=== PATIENT | male | born 1960 | race Caucasian/White ===

== ENCOUNTER 2017-11-24 14:49 | Inpatient (IN) ==
[2017-11-24] MEDS ORDERED: *HR* Heparin 5,000 UNIT/ML VIAL IVP PRN (16:06)
[2017-11-24] MEDS ORDERED: *HR* Heparin 5,000 UNIT/ML VIAL IVP ONE (16:06)
[2017-11-24] MEDS ORDERED: Naloxone 0.4 MG/ML INJ IVP PRN (16:07)
[2017-11-24] MEDS ORDERED: OXYCODONE Oral CONC 10 MG/0.5 ML ORAL.SYG SL PRN (16:07)
[2017-11-24] MEDS ORDERED: Acetaminophen 325 MG TABLET PO PRN (16:07)
[2017-11-24] MEDS ORDERED: *HR* OxyCODONE Immed Rel 5 MG TABLET PO PRN ×2 (16:07→16:48)
[2017-11-24] MEDS ORDERED: *HR* HYDROcodone/Acet 5/325 mg TABLET PO PRN (16:07)
[2017-11-24] MEDS ORDERED: *HR* FentaNYL PATCH 25 MCG PATCH TD SCH (16:15)
[2017-11-24] MEDS ORDERED: *HR* OxyCODONE Immed Rel 15 MG TABLET PO PRN (16:46)
--- NOTE | 2017-11-24 16:53 | Vascular/Endovascular H&P ---
Date of Encounter: 11/24/17 Time of Encounter: 15:00 Assessment and Plan (1) Atherosclerosis of left lower extremity with rest pain Current Visit: Yes Status: Acute The patient has acute on chronic left lower extremity ischemia. He has no signs of immediate limb threatening ischemia. He has an occluded FEM-FEM and Left Femoral to Popliteal Bypass. He will be admitted and started on intravenous anticoagulation. He will be given adequate pain control. His labs will be checked. He may require reverasal of his anticoagulation. He will be scheduled for revascularization. Qualifiers: Peripheral atherosclerosis artery type: bypass graft, nonbiological Qualified Code(s): I70.622 - Atherosclerosis of nonbiological bypass graft(s) of the extremities with rest pain, left leg (2) Essential hypertension Current Visit: Yes Status: Acute (3) COPD (chronic obstructive pulmonary disease) Current Visit: Yes Status: Acute Qualifiers: COPD type: emphysema Emphysema type: panlobular Qualified Code(s): J43.1 - Panlobular emphysema (4) Hyperlipidemia Current Visit: Yes Status: Acute Qualifiers: Hyperlipidemia type: mixed hyperlipidemia Qualified Code(s): E78.2 - Mixed hyperlipidemia History of Present Illness Chief complaint: Left forefoot rest pain HPI: Mr. Rodriguez is a 57 year old male with a history of lumbar radiculopathy, hypertension, COPD, tobacco abuse and peripheral vascular disease. He has previously undergone iliac artery stent placement, a left femoral to popliteal artery bypass and a FEM-FEM bypass. He presented to clinic today with severe disabling claudication and rest pain. He reports that the pain has progressed during the last week. He denies any motor or sensory deficits. He denies ulceration or gangrene. He denies chest pain or shortness of breath. 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), hyperlipidemia, hypertension, peripheral artery disease (history of ilac stent placement, FEM-FEM bypass and left femoral to popliteal artery bypass) - Social History Smoking Status: Former smoker (Quit 2013) Medications and Allergies Alprazolam [Xanax] 2 mg PO QID 11/24/17 [History] DULoxetine [Cymbalta] 30 mg PO QPM 11/24/17 [History] DULoxetine [Cymbalta] 60 mg PO DAILY 11/24/17 [History] Docusate Sodium [Stool Softener] 100 mg PO DAILY 11/24/17 [History] Dronabinol [Marinol] 2.5 mg PO DAILY 11/24/17 [History] Enalapril Maleate [Vasotec] 10 mg PO DAILY 11/24/17 [History] Ergocalciferol (VITAMIN D2) [Vitamin D2] 50,000 unit PO QWEEK 11/24/17 [History] FLUoxetine HCl [PROzac] 10 mg PO DAILY 11/24/17 [History] FentaNYL PATCH [Duragesic] 25 mcg TD Q72H 11/24/17 [History] Gabapentin [Neurontin] 600 mg PO TID 11/24/17 [History] Levothyroxine [Synthroid] 150 mcg PO DAILY 11/24/17 [History] Magnesium Oxide [Magnesium] 400 mg PO DAILY 11/24/17 [History] Mv,Ca,Min/Iron Fum/FA/Lyco/Lut [Sentry Multivit & Mineral Cplt] 1 each PO DAILY 11/24/17 [History] Omeprazole [PriLOSEC] 20 mg PO BID 11/24/17 [History] Oxycodone HCl [Oxycodone HCl ER] 30 mg PO Q4-6H PRN 11/24/17 [History] Pilocarpine HCl [Salagen] 5 mg PO TID 11/24/17 [History] Sildenafil Citrate [Revatio] 20 - 100 mg PO DAILY PRN 11/24/17 [History] Simvastatin [Zocor] 20 mg PO HS 11/24/17 [History] Tadalafil [Cialis] 5 mg PO Q24H 11/24/17 [History] Trazodone HCl 150 mg PO HS 11/24/17 [History] Warfarin [Coumadin] 5 mg PO Q48H 11/24/17 [History] OxyCODONE Immed Rel [Roxicodone 10 MG] 10 mg PO Q8H PRN 11/25/17 [History] Warfarin [Coumadin] 5.5 mg PO Q48H 11/25/17 [History] 3 Allergy/AdvReac Type Severity Reaction Status Date / Time No Known Allergies Allergy Verified 08/08/15 14:46 All Systems Review: The remainder of the systems were reviewed and are negative - Constitutional Constitutional: no chills, no fever(s) - Cardiovascular Cardiovascular: no chest pain at rest, no chest pain with exertion, no dyspnea at rest, no dyspnea on exertion - Vascular Vascular: claudication, leg pain with exertion, lower extremity discoloration, lower extremity coldness, no lower extremity ulcers - Gastrointestinal Gastrointestinal: no abdominal pain - Neurological Neurological: no abnormal speech, no focal weakness, no numbness Exam Vital Signs, Last 4 Hours Temp Pulse Resp BP Pulse Ox 11/24/17 15:55 98.3 F 61 15 130/79 91 General: Present: Conversant, No Apparent Distress HEENT: Present: Atraumatic, Pupils equal Neck: Absent: JVD, Lymphadenopathy, Left Carotid bruit, Right Carotid bruit Cardiac: Present: Reg Rate and Rhythm, Normal S1 and S2 Lungs: Present: Normal Breath Sounds, No Wheeze, Rales, Rhonchi Neuro: Present: Alert and responsive, No focal deficits noted, Cranial nerves grossly intact, Motor nerves grossly intact, Sensory nerves grossly intact Abdomen: Present: Soft, Non-tender Vascular: Present: Normal capillary refill, Pulse, absent (left lower extremity) , Cyanosis (left forefoot), Color/Temperature (Left foot cool), Other ( dependent rubor noted) Skin: Present: No rashes noted on visualized skin. Absent: Wound/ulcer(s) Results 11/26/17 05:49 11/24/17 16:18 - Imaging / Other Tests CT/CTA: report reviewed, image reviewed (1. Chronic occlusion of the left external iliac artery. A fem-fem bypass graft and left-sided fem-pop bypass graft are occluded. Thready flow is reconstituted in the left popliteal artery. There is poor filling of the left-sided calf arteries. 2. The right superficial femoral artery is completely occluded. Flow reconstitutes in the proximal popliteal artery, with likely 2 vessel runoff to the right foot via the anterior and posterior tibial arteries. 3. Moderate stenosis in the mid right external iliac artery. Mild stenosis in the proximal right common iliac artery.)
[2017-11-24 16:58] LABS: Basophils % 0.3 %; Eosinophils # 0.1 K/mcL (0.0-0.6); Eosinophils % 2.2 %; Hematocrit 40.8 % (37.5-50.1); Hemoglobin 13.8 g/dL (12.9-16.9); Immature Granulocytes % 0.3 % (0-4); Lymphocytes # 1.5 K/mcL (0.6-4.6); Lymphocytes % 25.3 %; Mean Corpuscular HGB Conc 33.8 g/dL (31.6-35.5); Mean Corpuscular Hemoglobin 31.7 pg (28.0-33.3); Mean Corpuscular Volume 93.8 fL (83.0-100.0); Mean Platelet Volume 9.7 fL (9.4-12.4); Monocytes # 0.5 K/mcL (0.0-1.3); Monocytes % 7.5 %; Neutrophils # 3.9 K/mcL (1.6-8.9); Platelet Count 159 K/mcL (140-400); Red Blood Count 4.35 M/mcL (4.19-5.50); Red Cell Distribution Width 13.1 % (11.5-14.5); Segmented Neutrophils % 64.4 %
[2017-11-24 16:59] LABS: INR 1.6; Prothrombin Time 17.4 Seconds (9.4-12.1)
[2017-11-24 17:02] LABS: Activated Partial Thrombo Time 32.6 Seconds (26.0-36.0)
[2017-11-24 17:23] LABS: BUN/Creatinine Ratio 10 (6-26); Blood Urea Nitrogen 8 mg/dL (6-20); Calcium 9.3 mg/dL (8.6-10.3); Carbon Dioxide 31 mEq/L (23-29); Chloride 102 mEq/L (98-107); Glucose 119 mg/dL (70-105); Osmolality,Calculated 289 (280-300); Potassium 3.9 mEq/L (3.5-5.1); Sodium 140 mEq/L (136-145); eGFR For African Americans > 60 (> 60); eGFR For Non-African Americans > 60 (> 60)
[2017-11-24] MEDS: ALPRAZolam 1 MG TABLET PO SCH ×2 (18:02→21:01)
[2017-11-24] MEDS: Heparin 25,000 UNIT/500 ML D5W 25,000 UNIT/500 ML BAG IVC SCH (18:05)
[2017-11-24] MEDS: *HR* OxyCODONE Immed Rel 5 MG TABLET PO PRN (18:12)
[2017-11-24] MEDS: Gabapentin 300 MG CAPSULE PO SCH (21:02)
[2017-11-24] MEDS: Clotrimazole/Betameth Dip CRM 45 APPL/45 GM TUBE TP SCH (21:07)
[2017-11-25 01:30] LABS: Activated Partial Thrombo Time > 360.0 Seconds (26.0-36.0)
[2017-11-25 01:37] LABS: Heparin anti-factor XA UFH 0.61 IU/mL (0.30-0.70)
[2017-11-25] MEDS: Ascorbic Acid 500 MG TABLET PO SCH (07:29)
[2017-11-25] MEDS: Gabapentin 300 MG CAPSULE PO SCH ×2 (07:29→20:21)
[2017-11-25] MEDS: ALPRAZolam 1 MG TABLET PO SCH ×4 (07:30→20:21)
[2017-11-25] MEDS: Lisinopril 20 MG TABLET PO SCH (07:31)
[2017-11-25] MEDS: Magnesium Oxide 400 MG TABLET PO SCH (07:31)
[2017-11-25] MEDS: Multivit/Ca/Min/Fe/FA 1 TAB TABLET PO SCH (07:31)
[2017-11-25] MEDS: Clotrimazole/Betameth Dip CRM 45 APPL/45 GM TUBE TP SCH ×2 (08:44→20:21)
[2017-11-25] MEDS: OXYCODONE Oral CONC 10 MG/0.5 ML ORAL.SYG SL PRN ×2 (11:05→16:24)
--- NOTE | 2017-11-25 13:12 | Vascular/[facility] Progress Note ---
Date of Encounter: 11/25/17 Time of Encounter: 12:35 - Assessment and plan (1) Atherosclerosis of left lower extremity with rest pain Status: Acute The patient has acute on chronic left lower extremity ischemia. He has no signs of immediate limb threatening ischemia. He has an occluded FEM-FEM and Left Femoral to Popliteal Bypass. His symptoms have decreased since starting heparin. Continue with heparin drip. INR remains elevated today. Will schedule for revascularization. Qualifiers: Peripheral atherosclerosis artery type: bypass graft, nonbiological Qualified Code(s): I70.622 - Atherosclerosis of nonbiological bypass graft(s) of the extremities with rest pain, left leg (2) Essential hypertension Status: Chronic (3) COPD (chronic obstructive pulmonary disease) Status: Chronic Qualifiers: COPD type: emphysema Emphysema type: panlobular Qualified Code(s): J43.1 - Panlobular emphysema - Subjective Interval history: He reports decreased symptoms since starting heparin drip. He reports adequate pain control. He denies chest pain or shortness of breath. Vital Signs, Last 4 Hours Temp Pulse Resp BP Pulse Ox 11/25/17 11:41 98.0 F 66 20 138/73 90 11/25/17 11:00 97.9 F 59 16 137/79 92 - Physical Examination General: Present: Conversant, No Apparent Distress Neck: Absent: JVD Cardiac: Present: Reg Rate and Rhythm, Normal S1 and S2 Lungs: Present: Normal Breath Sounds, No Wheeze, Rales, Rhonchi Neuro: Present: Alert and responsive, No focal deficits noted, Motor nerves grossly intact, Sensory nerves grossly intact Vascular: Present: Normal capillary refill, Pulse, absent, Other (left forefoot dependent rubor). Absent: Cyanosis, Edema Abdomen: Present: Soft, Non-tender Skin: Present: No rashes noted on visualized skin Results 11/27/17 13:24 11/27/17 13:24 Lab Results, Last 24 hours 11/24/17 11/24/17 11/24/17 16:18 16:18 16:18 WBC 6.0 Hgb 13.8 Hct 40.8 Plt Count 159 INR 1.6 APTT 32.6 Sodium 140 Potassium 3.9 Chloride 102 Carbon Dioxide 31 H BUN 8 Creatinine 0.83 Glucose 119 H Calcium 9.3 11/25/17 11/25/17 00:09 08:49 WBC Hgb Hct Plt Count INR APTT > 360.0 H* D 44.4 H D Sodium Potassium Chloride Carbon Dioxide BUN Creatinine Glucose Calcium Consult Discharge Plan - Plan Instructions: Peripheral Vascular Disorders (DC) Additional Instructions: May remove bandage and shower on 11/29/17. Wash wound gently and pat to dry. Apply dry bandage to wound daily for 7 days. No tub baths or swimming until 12/21/17. Call Dr. Healy at [phone] with questions or concerns. Referrals: Julius Mcclelland MD [Primary Care Provider] - 12/02/17 1:00 pm Prescriptions: Rivaroxaban [Xarelto] 20 mg PO 1700 #30 tablet
[2017-11-25] MEDS: Heparin 25,000 UNIT/500 ML D5W 25,000 UNIT/500 ML BAG IVC SCH (13:15)
[2017-11-25] MEDS: *HR* Heparin 5,000 UNIT/ML VIAL IVP PRN (19:02)
[2017-11-25 23:52] LABS: Activated Partial Thrombo Time 130.6 Seconds (26.0-36.0)
[2017-11-26 00:31] LABS: Heparin anti-factor XA UFH 0.71 IU/mL (0.30-0.70)
[2017-11-26 06:15] LABS: Basophils % 0.7 %; Eosinophils # 0.1 K/mcL (0.0-0.6); Eosinophils % 2.4 %; Hematocrit 41.9 % (37.5-50.1); Hemoglobin 13.7 g/dL (12.9-16.9); Immature Granulocytes % 0.5 % (0-4); Lymphocytes # 1.8 K/mcL (0.6-4.6); Lymphocytes % 30.7 %; Mean Corpuscular HGB Conc 32.7 g/dL (31.6-35.5); Mean Corpuscular Hemoglobin 31.7 pg (28.0-33.3); Mean Platelet Volume 10.1 fL (9.4-12.4); Monocytes # 0.4 K/mcL (0.0-1.3); Monocytes % 6.9 %; Neutrophils # 3.5 K/mcL (1.6-8.9); Platelet Count 175 K/mcL (140-400); Red Blood Count 4.32 M/mcL (4.19-5.50); Red Cell Distribution Width 13.1 % (11.5-14.5); Segmented Neutrophils % 58.8 %
[2017-11-26] MEDS: *HR* Heparin 5,000 UNIT/ML VIAL IVP PRN (06:40)
[2017-11-26] MEDS: Gabapentin 300 MG CAPSULE PO SCH ×2 (08:40→21:26)
[2017-11-26] MEDS: Magnesium Oxide 400 MG TABLET PO SCH (08:40)
[2017-11-26] MEDS: Lisinopril 20 MG TABLET PO SCH (08:40)
[2017-11-26] MEDS: ALPRAZolam 1 MG TABLET PO SCH ×4 (08:40→21:25)
[2017-11-26] MEDS: Multivit/Ca/Min/Fe/FA 1 TAB TABLET PO SCH (08:41)
[2017-11-26] MEDS: Ascorbic Acid 500 MG TABLET PO SCH (08:41)
[2017-11-26] MEDS: Clotrimazole/Betameth Dip CRM 45 APPL/45 GM TUBE TP SCH ×2 (08:42→21:26)
[2017-11-26] MEDS: Heparin 25,000 UNIT/500 ML D5W 25,000 UNIT/500 ML BAG IVC SCH (12:00)
--- NOTE | 2017-11-26 18:57 | Anesthesia Evaluation PreOp ---
Date of Encounter: 11/26/17 Time of Encounter: 20:00 - Past History Planned Operation: Left lower extremity thrombectomy vs. revasc BPG Cardiac History: HTN, Hyperlipidemia, Other (PAD: Left Fem-Fem & Fem-Pop BPG. Acute on chronic LLE ischemia. On heparin gtt. On coumadin at home.) Pulmonary History: Former smoker, COPD (Mild, no inhalers, no O2.), Other (Oral CA, post wide neck resection, with tracheostmy. 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 Chronic pain. History of vertebral fractures.) Other Medical History: Thyroid Anesthesia History: No Prior Anesthetic Complications, Past Anesthesia (Wide neck dissection, with forearm flap, thyroidectomy, vascular sx, Back x2, ACDF) Alcohol Use: rarely Drug use: none Medications and Allergies Alprazolam [Xanax] 2 mg PO QID 11/24/17 [History] DULoxetine [Cymbalta] 30 mg PO QPM 11/24/17 [History] DULoxetine [Cymbalta] 60 mg PO DAILY 11/24/17 [History] Docusate Sodium [Stool Softener] 100 mg PO DAILY 11/24/17 [History] Dronabinol [Marinol] 2.5 mg PO DAILY 11/24/17 [History] Enalapril Maleate [Vasotec] 10 mg PO DAILY 11/24/17 [History] Ergocalciferol (VITAMIN D2) [Vitamin D2] 50,000 unit PO QWEEK 11/24/17 [History] FLUoxetine HCl [PROzac] 10 mg PO DAILY 11/24/17 [History] FentaNYL PATCH [Duragesic] 25 mcg TD Q72H 11/24/17 [History] Gabapentin [Neurontin] 600 mg PO TID 11/24/17 [History] Levothyroxine [Synthroid] 150 mcg PO DAILY 11/24/17 [History] Magnesium Oxide [Magnesium] 400 mg PO DAILY 11/24/17 [History] Mv,Ca,Min/Iron Fum/FA/Lyco/Lut [Sentry Multivit & Mineral Cplt] 1 each PO DAILY 11/24/17 [History] Omeprazole [PriLOSEC] 20 mg PO BID 11/24/17 [History] Oxycodone HCl [Oxycodone HCl ER] 30 mg PO Q4-6H PRN 11/24/17 [History] Pilocarpine HCl [Salagen] 5 mg PO TID 11/24/17 [History] Sildenafil Citrate [Revatio] 20 - 100 mg PO DAILY PRN 11/24/17 [History] Simvastatin [Zocor] 20 mg PO HS 11/24/17 [History] Tadalafil [Cialis] 5 mg PO Q24H 11/24/17 [History] Trazodone HCl 150 mg PO HS 11/24/17 [History] Warfarin [Coumadin] 5 mg PO Q48H 11/24/17 [History] OxyCODONE Immed Rel [Roxicodone 10 MG] 10 mg PO Q8H PRN 11/25/17 [History] Warfarin [Coumadin] 5.5 mg PO Q48H 11/25/17 [History] 3 Allergy/AdvReac Type Severity Reaction Status Date / Time No Known Allergies Allergy Verified 08/08/15 14:46 - Meds/Allergy Pre-op Review Medications Reviewed: Yes Allergies Reviewed: Yes Beta Blockers on Current Med List: No Anesthesia Results - Labs 11/26/17 05:49 11/24/17 16:18 PT 17.4 Seconds (9.4-12.1) H 11/24/17 16:18 APTT 62.9 Seconds (26.0-36.0) H 11/26/17 18:10 - Imaging EKG: other (NSR on rhytm strip) Anesthesia Exam Vital Signs/O2 Sat/Glucose, Most Recent Temp Pulse Resp BP Pulse Ox 98.8 F 70 18 129/74 95 11/26/17 16:14 11/26/17 16:14 11/26/17 16:14 11/26/17 16:14 11/26/17 16:14 Weight: 95 kg BMI 32 NPO (# of Hours): Instructed NPO after MN - HEENT Mallampati: II Teeth: Edentulous Oral Opening: Less than or equal to 3 - Cardiac Rhythm: Regular - Pulmonary Breath Sounds: bilateral Clear Anesthesia Assess/Plan ASA Score: 4 Modified [place] Scale for Level of Consciousness: Cooperative, oriented, and tranquil Anesthetic Plan: General Monitoring Plan: Standard Monitors Recovery Plan: PACU Anes Supervising Prov Stmt: I have participated in the evaluation of this patient. Patient informed and consented. Risks, benefits, and alternatives discussed. Patient wishes to proceed.
[2017-11-26] MEDS: *HR* OxyCODONE Immed Rel 5 MG TABLET PO PRN (19:37)
[2017-11-27] MEDS: Heparin 25,000 UNIT/500 ML D5W 25,000 UNIT/500 ML BAG IVC SCH (02:05)
[2017-11-27] MEDS ORDERED: Lidocaine -MPF 2% 2 ML VIAL ONE (06:28)
[2017-11-27] MEDS ORDERED: *HR* Succinylcholine 200 MG/10 ML VIAL IVP ONE (06:28)
[2017-11-27] MEDS ORDERED: Lidocaine -MPF 4% 5 ML AMPUL ONE ×2 (06:28→07:25)
[2017-11-27] MEDS ORDERED: *HR* Rocuronium Bromide 50 MG/5 ML VIAL ONE (06:28)
[2017-11-27] MEDS ORDERED: *HR* Midazolam HCl 2 MG/2 ML VIAL ONE ×2 (06:29→07:47)
[2017-11-27] MEDS ORDERED: *HR* Propofol 200 MG/20 ML VIAL IVP ONE (06:29)
[2017-11-27] MEDS ORDERED: *HR* FentaNYL (PF) 100 MCG/2 ML VIAL ONE ×2 (06:29→09:15)
[2017-11-27] MEDS ORDERED: Heparin 1,000 UNITS/500 mL 500 ML ONE (07:15)
[2017-11-27] MEDS ORDERED: Heparin 1,000 UNITS/500 mL 1,000 ML ONE (07:23)
[2017-11-27] MEDS ORDERED: Vancomycin 1,000 MG, Sodium Chloride IRRigation 1,000 ML IR ONE ×2 (07:45→12:58)
[2017-11-27] MEDS ORDERED: Lidocaine Jelly 6ml 1 APPL/6 ML JEL.PF.APP ONE (07:56)
[2017-11-27] MEDS ORDERED: Ketamine *HR* 500 MG/10 ML MDV ONE (08:41)
[2017-11-27] MEDS ORDERED: Vancomycin 1,000 MG VIAL ONE (08:57)
[2017-11-27] MEDS ORDERED: *HR* Heparin 5,000 UNIT/ML VIAL ONE ×2 (09:42→10:27)
[2017-11-27] MEDS ORDERED: Ondansetron 4 MG/2 ML VIAL IVP ONE (10:16)
[2017-11-27] MEDS ORDERED: MORPHINE SUL Oral CONC 10 MG/0.5 ML ORAL.SYG SL PRN (10:16)
[2017-11-27] MEDS ORDERED: *HR* OxyCODONE Immed Rel 5 MG TABLET PO PRN ×2 (10:16→12:58)
[2017-11-27] MEDS ORDERED: *HR* FentaNYL (PF) 100 MCG/2 ML VIAL IVP PRN (10:16)
[2017-11-27] MEDS ORDERED: *HR* Promethazine 25 MG/ML VIAL IVP PRN (10:16)
[2017-11-27] MEDS ORDERED: Ondansetron 4 MG/2 ML VIAL ONE (10:24)
--- NOTE | 2017-11-27 12:12 | Vascular/[facility] Progress Note ---
Date of Encounter: 11/26/17 Time of Encounter: 12:15 - Assessment and plan (1) Atherosclerosis of left lower extremity with rest pain Status: Acute The patient has acute on chronic left lower extremity ischemia. He still denies signs or symptoms immediate limb threatening ischemia. He has an occluded FEM-FEM and Left Femoral to Popliteal Bypass. He reports improvement since starting intravenous anticoagulation. He has been scheduled for graft thrombectomy with possible revision. The risks, benefits anad alternatives were discussed and all questions were answered. He expressed understanding and wishes to proceed. He will likely require anticoagulation after his procedure. Qualifiers: Peripheral atherosclerosis artery type: bypass graft, nonbiological Qualified Code(s): I70.622 - Atherosclerosis of nonbiological bypass graft(s) of the extremities with rest pain, left leg (2) Essential hypertension Status: Chronic (3) COPD (chronic obstructive pulmonary disease) Status: Chronic Qualifiers: COPD type: emphysema Emphysema type: panlobular Qualified Code(s): J43.1 - Panlobular emphysema (4) Hyperlipidemia Status: Acute Qualifiers: Hyperlipidemia type: mixed hyperlipidemia Qualified Code(s): E78.2 - Mixed hyperlipidemia - Subjective Interval history: The patient states that he has adequate pain control. He denies any sensation or motor deficits. He denies chest pain or shortness of breath. - Physical Examination General: Present: Conversant, No Apparent Distress Cardiac: Present: Reg Rate and Rhythm, Normal S1 and S2 Lungs: Present: Normal Breath Sounds Neuro: Present: Alert and responsive, No focal deficits noted, Motor nerves grossly intact, Sensory nerves grossly intact Vascular: Present: Pulse, absent (left femoral thtrough tibial pulses), Pulse, diminished, Other (left forefoot dependent rubor). Absent: Cyanosis, Edema Abdomen: Present: Soft Skin: Present: No rashes noted on visualized skin Results 11/27/17 13:24 11/27/17 13:24 Lab Results, Last 24 hours 11/26/17 11/26/17 11/27/17 12:26 18:10 00:26 APTT 44.3 H 62.9 H 68.9 H Consult Discharge Plan - Plan Instructions: Peripheral Vascular Disorders (DC) Additional Instructions: May remove bandage and shower on 11/29/17. Wash wound gently and pat to dry. Apply dry bandage to wound daily for 7 days. No tub baths or swimming until 12/21/17. Call Dr. Healy at [phone] with questions or concerns. Referrals: Julius Mcclelland MD [Primary Care Provider] - 12/02/17 1:00 pm Prescriptions: Rivaroxaban [Xarelto] 20 mg PO 1700 #30 tablet
--- NOTE | 2017-11-27 12:14 | Operative Note ---
Date of procedure: 11/27/17 Pre-op diagnosis: Peripheral vascular disease with rest pain Post-op diagnosis: same Procedure: 1. Right common femoral to left common femoral artery bypass graft thrombectomy with revision. 2. Left femoral to popliteal artery bypass graft thrombectomy with revision. 3. Left deep femoral endarterectomy. Complications: None Anesthesia: GETA Surgeon: Gabriel Healy Was there an temporary office assistant present: No Estimated blood loss (cc): 100 Specimen: Thrombus and plaque Condition: stable Disposition: PACU Procedure in Detail: Indications: The patient is a 57 year old female with a history of peripheral vascular disease. He has previously undergone a right to left femoral to femoral artery bypass for a left iliac artery occlusion and a left femoral to above knee popliteal artery bypass for a left superficial femoral artery occlusion. He presented to clinic with rest pain and signs of acute on chronic limb ischemias. A CT scan revealed that both of his grafts were graft was occluded. Thrombectomy with possible revision was recommended to alleviate his symptoms and reduce his risk of limb loss. Procedure: The patient was identified in the preoperative area. The risks, benefits and alternatives were discussed and all questions were answered. The patient was taken to the operating room and placed in the supine position on the operating room table. After the induction of general endotracheal anesthesia, the patient was cleaned and draped in the normal sterile fashion. An oblique incision was made sharply through her previous left groin scar overlying the femoral vessels. Hemostasis was obtained with electrocautery. Through a process of blunt, sharp and electrocautery dissection, the distal external iliac, deep and superficial femoral arteries were dissected and surrounded with vessel loops. The distal limb of the femoral to femoral artery bypass graft and proximal limb of the left femoral to popliteal artery bypass grafts were also dissected and surrounded with vesel loops. The patient received a 5000 unit bolus of heparin. After waiting adequate time or the heparin to circulate, the vessels and grafts were occluded with the vessel loops and atraumatic vascular clamps. A longitudinal arteriotomy was made through the graft anastamoses and extended proximally into the [place] artery. No flow was noted on release of the loops. A 4 mo[place] erick catheter was passed into the femoral to femoral artery bypass and inflated. It was withdrawn and some acute thrombus and chronic embolic material was retrieved. This was sent to pathology. Brisk pulsatile flow was noted at this time. Additional passes of the catheter resulted in no additional thrombus. A 4 [place] erick catheter was passed into the deep femoral artery. Thrombus was retrieved a sluggish flow was noted. A 4 [place] erick catheter was passed distally through the left femoral to popliteal artery bypass graft and into the distal popliteal artery. Thrombus was retrieved on the first pass. Additional passes resulted in no additional thrombus. Retrograde flow as noted through the graft. The vessels and graft were then flushed with heparin. Intimal hyperplasia and plaque was noted to be present along the left deep femoral artery. The lesion extended into the lumens of the grafts. Using a dental freer, an endarectomy was performed on the deep femoral artery. Upon completion of the endarterectomy, brisk retograde flow was noted. A 4 moz[place] rubin occluder was required to restrict the flow. Primary closure of the graftotomy and arterial defect was determined to likely lead to stenosis and subsequent occlusion. Therefore a hemashield patch was cut to fit the triangular shaped defect. The patech was sutured in place with a runnnig 6-0 prolene. Prior to completing the closure, the vessels were flushed, the graft was flushed and the rubin occluder was removed. Heparin was infused into the lumen. Flow was restored in the [place] vessels and graft. Polyphasic signals were identified in the posterior tibial and dorsalis pedis arteries below the ankle. The wound was irrigated with antibiotic containing saline. Hemostasis was obtained with electrocautery. The wound was reapproximated with 2-0 and 3-0 vicryl. Skin was reapproximated with 3-0 Monocryl. Sterile dressings were applied. The patient was extubated and taken to the recover room in stable condition.
--- NOTE | 2017-11-27 12:51 | Anesthesia Evaluation Post Op ---
Date of Encounter: 11/27/17 Time of Encounter: 12:51 - Vital Signs Vital Signs: Vital Signs/O2 Sat, Most Current Temp Pulse Resp BP Pulse Ox 98.7 F 63 12 142/70 97 11/27/17 12:31 11/27/17 12:41 11/27/17 12:41 11/27/17 12:41 11/27/17 12:41 - Lungs Lungs: Clear Ascult./Percussion - Airway Airway: Non-obstructed - Cardiovascular Regular Rate - Mental Status Mental Status: Alert & Oriented, Answers Appropriately - Pain Pain Scale: 3 Pain Scale used: Numeric (1 - 10) - Nausea Vomiting Nausea Vomiting: Not Present - Hydration Hydration: Tolerates oral liquids, Rivas catheter - Discharge PostOp Status: Transfer Patient to floor
[2017-11-27] MEDS ORDERED: Naloxone 0.4 MG/ML INJ IVP PRN (12:58)
[2017-11-27] MEDS ORDERED: *HR* OxyCODONE Immed Rel 15 MG TABLET PO PRN (12:58)
[2017-11-27] MEDS ORDERED: OXYCODONE Oral CONC 10 MG/0.5 ML ORAL.SYG SL PRN (12:58)
[2017-11-27] MEDS: ALPRAZolam 1 MG TABLET PO SCH ×3 (13:33→20:11)
[2017-11-27] MEDS: OXYCODONE Oral CONC 10 MG/0.5 ML ORAL.SYG SL PRN ×2 (13:34→21:21)
[2017-11-27 13:55] LABS: Basophils % 0.6 %; Eosinophils # 0.1 K/mcL (0.0-0.6); Eosinophils % 1.1 %; Hematocrit 39.8 % (37.5-50.1); Hemoglobin 12.7 g/dL (12.9-16.9); Immature Granulocytes % 0.6 % (0-4); Lymphocytes # 1.5 K/mcL (0.6-4.6); Mean Corpuscular HGB Conc 31.9 g/dL (31.6-35.5); Mean Corpuscular Volume 97.1 fL (83.0-100.0); Mean Platelet Volume 10.1 fL (9.4-12.4); Monocytes # 0.5 K/mcL (0.0-1.3); Monocytes % 6.4 %; Neutrophils # 5.1 K/mcL (1.6-8.9); Platelet Count 146 K/mcL (140-400); Red Cell Distribution Width 13.2 % (11.5-14.5); Segmented Neutrophils % 70.3 %
--- NOTE | 2017-11-27 13:58 | Anesthesia Procedures ---
Date of Encounter: 11/27/17 Time of Encounter: 08:40 Procedures: Anesthesia - Arterial Line Consent obtained: written consent Time out performed: Yes Size (Gauge): 20 Length (inches): 1 3/4 Technique Used: sterile prep Post-Procedure: line taped into place Patient tolerated procedure: well Complications: none Site: Radial R Comments: completed after induction
[2017-11-27 14:13] LABS: BUN/Creatinine Ratio 15 (6-26); Blood Urea Nitrogen 11 mg/dL (6-20); Calcium 8.4 mg/dL (8.6-10.3); Carbon Dioxide 29 mEq/L (23-29); Chloride 107 mEq/L (98-107); Glucose 98 mg/dL (70-105); Osmolality,Calculated 289 (280-300); Sodium 140 mEq/L (136-145); eGFR For African Americans > 60 (> 60); eGFR For Non-African Americans > 60 (> 60)
[2017-11-27] MEDS ORDERED: *HR* FentaNYL PATCH 25 MCG PATCH TD SCH (16:15)
[2017-11-27] MEDS ORDERED: *HR* Rivaroxaban 10 MG TABLET PO SCH (17:00)
[2017-11-27] MEDS: *HR* OxyCODONE Immed Rel 5 MG TABLET PO PRN ×2 (19:43→23:38)
[2017-11-27] MEDS: Gabapentin 300 MG CAPSULE PO SCH (20:10)
[2017-11-27] MEDS: Clotrimazole/Betameth Dip CRM 45 APPL/45 GM TUBE TP SCH (20:26)
[2017-11-28] MEDS: OXYCODONE Oral CONC 10 MG/0.5 ML ORAL.SYG SL PRN (01:31)
[2017-11-28] MEDS: *HR* OxyCODONE Immed Rel 5 MG TABLET PO PRN ×2 (06:08→08:53)
--- NOTE | 2017-11-28 06:30 | Discharge Summary ---
Date of Encounter: 11/28/17 Time of Encounter: 06:55 - Discharge Diagnosis (1) Atherosclerosis of left lower extremity with rest pain Priority: Primary Status: Acute Comments: The patient is postoperative day #1 after graft thrombectomy, revision of his graft and endarterectomy. His feet are warm and he has polyphasic left tibial signals. His compartments are soft. He reports adequate pain control. He will be discharged today. Qualifiers: Peripheral atherosclerosis artery type: bypass graft, nonbiological Qualified Code(s): I70.622 - Atherosclerosis of nonbiological bypass graft(s) of the extremities with rest pain, left leg (2) Essential hypertension Priority: Secondary Status: Chronic (3) COPD (chronic obstructive pulmonary disease) Priority: Secondary Status: Chronic Qualifiers: COPD type: emphysema Emphysema type: panlobular Qualified Code(s): J43.1 - Panlobular emphysema (4) Hyperlipidemia Priority: Secondary Status: Chronic Qualifiers: Hyperlipidemia type: mixed hyperlipidemia Qualified Code(s): E78.2 - Mixed hyperlipidemia (5) Acute blood loss anemia Priority: Secondary Status: Acute Comments: The patient has acute expected postoperative blood loss anemia. He is hemodynamically stable without evidence of ongoing blood loss. (6) Obesity (BMI 30.0-34.9) Priority: Secondary Status: Chronic - Hospital Course Hospital course: Mr. Rodriguez is a 57 year old male who was admitted on 11/24/17 with acute on chronic limb ischemia. He was admitted and started on intrevenous heparin. He was given pain control and his coumadin was held. He had improvement of his symptoms with intravenous anticoagualtion. He was taken to the OR on 11/27/17 where he underwent graft thrombectomy, revision of his grafts and endarterectomy. He tolerated the procedure well and was discharged to home in stable condition on postoperative day #1. His coumadin was dicontinued and he was started on Xarelto. Time spent discussing smoking cessation with patient: 3 to 10 minutes - Time Spent with Patient Total time spent providing and/or coordinating discharge services: - Discharge Medications Prescriptions: Rivaroxaban [Xarelto] 20 mg PO 1700 #30 tablet Home Medications: Alprazolam [Xanax] 2 mg PO QID 11/24/17 [History] DULoxetine [Cymbalta] 30 mg PO QPM 11/24/17 [History] DULoxetine [Cymbalta] 60 mg PO DAILY 11/24/17 [History] Docusate Sodium [Stool Softener] 100 mg PO DAILY 11/24/17 [History] Dronabinol [Marinol] 2.5 mg PO DAILY 11/24/17 [History] Enalapril Maleate [Vasotec] 10 mg PO DAILY 11/24/17 [History] Ergocalciferol (VITAMIN D2) [Vitamin D2] 50,000 unit PO QWEEK 11/24/17 [History] FLUoxetine HCl [Prozac] 10 mg PO DAILY 11/24/17 [History] FentaNYL PATCH [Duragesic] 25 mcg TD Q72H 11/24/17 [History] Gabapentin [Neurontin] 600 mg PO TID 11/24/17 [History] Levothyroxine [Synthroid] 150 mcg PO DAILY 11/24/17 [History] Magnesium Oxide [Magnesium] 400 mg PO DAILY 11/24/17 [History] Mv,Ca,Min/Iron Fum/FA/Lyco/Lut [Sentry Multivit & Mineral Cplt] 1 each PO DAILY 11/24/17 [History] Omeprazole [PriLOSEC] 20 mg PO BID 11/24/17 [History] Oxycodone HCl [Oxycodone HCl ER] 30 mg PO Q4-6H PRN 11/24/17 [History] Pilocarpine HCl [Salagen] 5 mg PO TID 11/24/17 [History] Sildenafil Citrate [Revatio] 20 - 100 mg PO DAILY PRN 11/24/17 [History] Simvastatin [Zocor] 20 mg PO HS 11/24/17 [History] Tadalafil [Cialis] 5 mg PO Q24H 11/24/17 [History] Trazodone HCl 150 mg PO HS 11/24/17 [History] OxyCODONE Immed Rel [Roxicodone 10 MG] 10 mg PO Q8H PRN 11/25/17 [History] Rivaroxaban [Xarelto] 20 mg PO 1700 #30 tablet 11/28/17 [Rx] Allergies/Adverse Reactions: 3 Allergy/AdvReac Type Severity Reaction Status Date / Time No Known Allergies Allergy Verified 08/08/15 14:46 Date of admission: 11/24/17 15:26 Primary care physician: Julius Mcclelland MD Consults: 11/24/17 16:51 Consult to Mechanical Designer [CONS] Routine Reason for SW Consult: Financial concerns to qualify for medical assistance 11/27/17 12:58 Consult to Occupational Therapy [CONS] Routine Comment: Evaluate, develop and implement POC Reason for Consult: Peripheral vascular disease s/p graft trhombectomy. Bedrest until AM 11/28/17 Does patient have active BEDREST order?: Yes Is patient medically & hemodynamically stable?: Yes Consult to Physical Therapy [CONS] Routine Comment: Evaluate, develop and implement POC Reason for Consult: Peripheral vascular disease s/p graft trhombectomy. Bedrest until AM 11/28/17 Does patient have active BEDREST order?: Yes Is patient medically & hemodynamically stable?: Yes Procedure(s) Performed: 1. Right common femoral to left common femoral artery bypass graft thrombectomy with revision. 2. Left femoral to popliteal artery bypass graft thrombectomy with revision. 3. Left deep femoral endarterectomy. Discharging clinician: Gabriel Healy Anticipated date of discharge: 11/28/17 Exam Vital Signs, Last 4 Hours Temp Pulse Resp BP Pulse Ox 11/28/17 03:36 97.8 F 56 15 105/70 98 General: Present: Conversant, No Apparent Distress Cardiac: Present: Reg Rate and Rhythm Lungs: Present: Normal Breath Sounds Neuro: Present: Alert and responsive, No focal deficits noted, Motor nerves grossly intact, Sensory nerves grossly intact Abdomen: Present: Soft, Non-tender Vascular: Present: Normal capillary refill, Pulse, normal (polyphasic left tibial signals), Surgical incisions (no hematoma, incision clean, dry and intact ). Absent: Cyanosis, Edema Skin: Present: No rashes noted on visualized skin - Patient Status Disposition: Home, Self-Care Condition: Good Functional capacity at discharge: independent ambulation Overall status at discharge: patient is back to baseline - Discharge Instructions Instructions: Peripheral Vascular Disorders (DC) Follow Up With: Julius Mcclelland MD [Primary Care Provider] - 12/02/17 1:00 pm Additional Instructions: May remove bandage and shower on 11/29/17. Wash wound gently and pat to dry. Apply dry bandage to wound daily for 7 days. No tub baths or swimming until 12/21/17. Call Dr. Healy at [phone] with questions or concerns. - Diet and Activity Activity: increase activity as tolerated Diet: advance to your usual diet - VTE Documentation of Mechanical Device: Intermittent pneumatic compression device
[2017-11-28] MEDS: Gabapentin 300 MG CAPSULE PO SCH (08:48)
[2017-11-28] MEDS: ALPRAZolam 1 MG TABLET PO SCH (08:49)
[2017-11-28] MEDS: Clotrimazole/Betameth Dip CRM 45 APPL/45 GM TUBE TP SCH (08:49)
[2017-11-28] MEDS ORDERED: Ascorbic Acid 500 MG TABLET PO SCH (09:00)
[2017-11-28] MEDS ORDERED: Magnesium Oxide 400 MG TABLET PO SCH (09:00)
[2017-11-28] MEDS ORDERED: Multivit/Ca/Min/Fe/FA 1 TAB TABLET PO SCH (09:00)
[2017-11-28] MEDS ORDERED: Lisinopril 20 MG TABLET PO SCH (09:00)
[2017-11-28 11:20] VITALS: BP 134/65
== END 2017-11-28 12:59 | disposition home or self-care (01) | DRG 253 ==
LOC: 2NNU 15:26
PROVIDERS: ADMIT Surgery; ATTEND Surgery

== ENCOUNTER 2018-01-01 06:25 | Inpatient (IN) ==
[2018-01-01] MEDS ORDERED: CeFAZolin Syr 2,000MG/20 ML 2,000 MG/20 ML SYRINGE IVPB ONE (06:39)
[2018-01-01] MEDS ORDERED: Albuterol 2.5 MG/3 ML NEBULIZER IH ONE (06:39)
[2018-01-01] MEDS ORDERED: Plasma-Lyte A (PH 7.4) 1,000 ML IVC SCH (06:45)
[2018-01-01] MEDS ORDERED: Lidocaine -MPF 2% 2 ML VIAL ONE (07:03)
[2018-01-01] MEDS ORDERED: Ondansetron 4 MG/2 ML VIAL ONE (07:03)
[2018-01-01] MEDS ORDERED: Dexamethasone 4 MG/ML VIAL ONE (07:03)
[2018-01-01] MEDS ORDERED: Lidocaine -MPF 4% 5 ML AMPUL ONE (07:03)
[2018-01-01] MEDS ORDERED: *HR* Rocuronium Bromide 50 MG/5 ML VIAL ONE (07:03)
[2018-01-01] MEDS ORDERED: *HR* FentaNYL (PF) 100 MCG/2 ML VIAL ONE ×3 (07:04→12:21)
[2018-01-01] MEDS ORDERED: *HR* Midazolam HCl 2 MG/2 ML VIAL ONE (07:04)
[2018-01-01] MEDS ORDERED: *HR* Propofol 200 MG/20 ML VIAL IVP ONE (07:04)
--- NOTE | 2018-01-01 07:14 | Anesthesia Evaluation PreOp ---
Date of Encounter: 01/01/18 Time of Encounter: 07:11 - Past History Planned Operation: Left Fem-Pop BPG thrombectomy, possible revision Medications and Allergies Alprazolam [Xanax] 2 mg PO QID 11/24/17 [History] DULoxetine [Cymbalta] 30 mg PO QPM 11/24/17 [History] DULoxetine [Cymbalta] 60 mg PO DAILY 11/24/17 [History] Docusate Sodium [Stool Softener] 100 mg PO DAILY 11/24/17 [History] Dronabinol [Marinol] 2.5 mg PO DAILY 11/24/17 [History] Enalapril Maleate [Vasotec] 10 mg PO DAILY 11/24/17 [History] Ergocalciferol (VITAMIN D2) [Vitamin D2] 50,000 unit PO QWEEK 11/24/17 [History] FLUoxetine HCl [Prozac] 10 mg PO DAILY 11/24/17 [History] FentaNYL PATCH [Duragesic] 25 mcg TD Q72H 11/24/17 [History] Gabapentin [Neurontin] 600 mg PO TID 11/24/17 [History] Levothyroxine [Synthroid] 150 mcg PO DAILY 11/24/17 [History] Magnesium Oxide [Magnesium] 400 mg PO DAILY 11/24/17 [History] Mv,Ca,Min/Iron Fum/FA/Lyco/Lut [Sentry Multivit & Mineral Cplt] 1 each PO DAILY 11/24/17 [History] Omeprazole [PriLOSEC] 20 mg PO BID 11/24/17 [History] Oxycodone HCl [Oxycodone HCl ER] 30 mg PO Q4-6H PRN 11/24/17 [History] Pilocarpine HCl [Salagen] 5 mg PO TID 11/24/17 [History] Sildenafil Citrate [Revatio] 20 - 100 mg PO DAILY PRN 11/24/17 [History] Simvastatin [Zocor] 20 mg PO HS 11/24/17 [History] Tadalafil [Cialis] 5 mg PO Q24H 11/24/17 [History] Trazodone HCl 150 mg PO HS 11/24/17 [History] OxyCODONE Immed Rel [Roxicodone 10 MG] 10 mg PO Q8H PRN 11/25/17 [History] Rivaroxaban [Xarelto] 20 mg PO 1700 #30 tablet 11/28/17 [Rx] 3 Allergy/AdvReac Type Severity Reaction Status Date / Time No Known Allergies Allergy Verified 08/08/15 14:46 - Meds/Allergy Pre-op Review Medications Reviewed: Yes Allergies Reviewed: Yes Anesthesia Results - Labs Laboratory Tests 12/31/17 12/31/17 12/31/17 14:08 14:08 14:08 Hgb 12.8 L Hct 39.2 Plt Count 141 PT 10.8 INR 1.0 APTT 31.2 Sodium 141 Potassium 4.0 BUN 11 Creatinine 1.06 Anesthesia Exam O2 Sat Height 1.73 m Weight 101.151 kg BMI 34 Vital Signs/O2 Sat/Glucose, Most Recent Temp Pulse Resp BP Pulse Ox 98.2 F 56 18 122/63 96 01/01/18 06:49 01/01/18 06:49 01/01/18 06:49 01/01/18 06:49 01/01/18 06:49 Anesthesia Note - Note Note: - Past History Cardiac History: HTN, Hyperlipidemia, Other (PAD: Left Fem-Fem & Fem-Pop BPG. LLE ischemia. On Xarelto) Pulmonary History: Former smoker, COPD (Mild, no inhalers, no O2.), Other (Oral CA, post wide neck resection, with tracheostmy. 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 Chronic pain. History of vertebral fractures.) Other Medical History: Thyroid Anesthesia History: No Prior Anesthetic Complications, Past Anesthesia (Fem-Pop BPG, Wide neck dissection, with forearm flap, thyroidectomy, vascular sx, Back x2, ACDF) Alcohol Use: rarely Drug use: none - Imaging EKG: other (NSR on rhytm strip) Anesthesia Exam NPO (# of Hours): >MN - HEENT Mallampati: II Teeth: Edentulous Oral Opening: Less than or equal to 3 - Cardiac Rhythm: Regular - Pulmonary Breath Sounds: bilateral Clear Anesthesia Assess/Plan ASA Score: 4 Modified Priya Scale for Level of Consciousness: Cooperative, oriented, and tranquil Anesthetic Plan: General Monitoring Plan: Standard Monitors Recovery Plan: PACU Anes Supervising Prov Stmt: Patient informed and consented. Risks, benefits, and alternatives discussed. Patient wishes to proceed.
--- NOTE | 2018-01-01 07:42 | Anesthesia Evaluation PreOp ---
Date of Encounter: 01/01/18 Time of Encounter: 07:40 - Past History Planned Operation: Left Fem-Pop BPG thrombectomy, possible revision Alcohol Use: none Drug use: none Medications and Allergies Alprazolam [Xanax] 2 mg PO QID 11/24/17 [History] DULoxetine [Cymbalta] 30 mg PO QPM 11/24/17 [History] DULoxetine [Cymbalta] 60 mg PO DAILY 11/24/17 [History] Docusate Sodium [Stool Softener] 100 mg PO DAILY 11/24/17 [History] Dronabinol [Marinol] 2.5 mg PO DAILY 11/24/17 [History] Enalapril Maleate [Vasotec] 10 mg PO DAILY 11/24/17 [History] Ergocalciferol (VITAMIN D2) [Vitamin D2] 50,000 unit PO TU 11/24/17 [History] FLUoxetine HCl [Prozac] 10 mg PO HS 11/24/17 [History] FentaNYL PATCH [Duragesic] 25 mcg TD Q72H 11/24/17 [History] Gabapentin [Neurontin] 600 mg PO TID 11/24/17 [History] Magnesium Oxide [Magnesium] 400 mg PO DAILY 11/24/17 [History] Mv,Ca,Min/Iron Fum/FA/Lyco/Lut [Sentry Multivit & Mineral Cplt] 1 each PO DAILY 11/24/17 [History] Omeprazole [PriLOSEC] 20 mg PO BID 11/24/17 [History] Oxycodone HCl [Oxycodone HCl ER] 30 mg PO Q4-6H PRN 11/24/17 [History] Pilocarpine HCl [Salagen] 5 mg PO TID 11/24/17 [History] Simvastatin [Zocor] 20 mg PO HS 11/24/17 [History] Trazodone HCl 150 mg PO HS 11/24/17 [History] OxyCODONE Immed Rel [Roxicodone 10 MG] 10 mg PO Q8H PRN 11/25/17 [History] Rivaroxaban [Xarelto] 20 mg PO 1700 #30 tablet 11/28/17 [Rx] Levothyroxine [Synthroid] 175 mcg PO 0630 01/01/18 [History] 3 Allergy/AdvReac Type Severity Reaction Status Date / Time No Known Allergies Allergy Verified 01/01/18 07:33 - Meds/Allergy Pre-op Review Medications Reviewed: Yes Allergies Reviewed: Yes Beta Blockers on Current Med List: No Anesthesia Note - Note Note: Anesthesia Results - Labs Laboratory Tests 12/31/17 12/31/17 12/31/17 14:08 14:08 14:08 Hgb 12.8 L Hct 39.2 Plt Count 141 PT 10.8 INR 1.0 APTT 31.2 Sodium 141 Potassium 4.0 BUN 11 Creatinine 1.06 Anesthesia Exam O2 Sat Height 1.73 m Weight 101.151 kg BMI 34 Vital Signs/O2 Sat/Glucose, Most Recent Temp Pulse Resp BP Pulse Ox 98.2 F 56 18 122/63 96 01/01/18 06:49 01/01/18 06:49 01/01/18 06:49 01/01/18 06:49 01/01/18 06:49 Anesthesia Note - Note Note: - Past History Cardiac History: HTN, Hyperlipidemia, Other (PAD: Left Fem-Fem & Fem-Pop BPG. LLE ischemia. On Xarelto) Pulmonary History: Former smoker, COPD (Mild, no inhalers, no O2.), Other (Oral CA, post wide neck resection, with tracheostmy. 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 Chronic pain. History of vertebral fractures.) Other Medical History: Thyroid Anesthesia History: No Prior Anesthetic Complications, Past Anesthesia (Fem-Pop BPG, Wide neck dissection, with forearm flap, thyroidectomy, vascular sx, Back x2, ACDF) Alcohol Use: rarely Drug use: none - Imaging EKG: other (NSR on rhytm strip) Anesthesia Exam NPO (# of Hours): >MN - HEENT Mallampati: II Teeth: Edentulous Oral Opening: Less than or equal to 3 - Cardiac Rhythm: Regular - Pulmonary Breath Sounds: bilateral Clear Anesthesia Assess/Plan ASA Score: 4 Modified Priya Scale for Level of Consciousness: Cooperative, oriented, and tranquil Anesthetic Plan: General Monitoring Plan: Standard Monitors Recovery Plan: PACU Anes Supervising Prov Stmt: Patient informed and consented. Risks, benefits, and alternatives discussed. Patient wishes to proceed.
[2018-01-01] MEDS ORDERED: Vancomycin 1,000 MG VIAL ONE ×2 (07:47→09:22)
[2018-01-01] MEDS ORDERED: Heparin 1,000 UNITS/500 mL 500 ML ONE ×2 (07:47→08:51)
[2018-01-01] MEDS ORDERED: *HR* Vasopressin 20 UNIT/ML VIAL ONE (08:09)
--- NOTE | 2018-01-01 08:17 | History & Physical Report ---
Date of Encounter: 01/01/18 Time of Encounter: 07:58 24 Hour HP Update - Instructions Instructions: If the History and Physical is less than 30 days old and was completed prior to A.M. admission and or procedure and has NOT been updated on calendar day of procedure please complete this update prior to performing procedure. - Update Patient reports changes in Medical Condition: No Changes in examination, assessment, or condition: No Changes in Medication: No Preop tests/diagnostics Reviewed: Yes Surgery Remains Indicated: Yes Consent for Planned Operative Procedure(s) Verified: Yes - Pre-Operative Checklist Preoperative Checklist Indicated: Yes Prophylactic Antibiotic Ordered: Yes (vancomycin due to MRSA risk) Home Medications Include Beta Khadijah: No Beta Khadijah Taken Today (Day of Surgery): No Beta Khadijah Taken Yesterday (Day Prior to Surgery): No Is VTE Prophylaxis Indicated?: Yes
[2018-01-01] MEDS ORDERED: Acetaminophen IV 1,000 MG/100 ML INFUS..BTL ONE (08:19)
[2018-01-01] MEDS ORDERED: *HR* Heparin 5,000 UNIT/ML VIAL ONE ×2 (09:26→11:28)
[2018-01-01] MEDS ORDERED: *HR* Magnesium Sulfate 1 GM/2 ML VIAL ONE ×2 (10:17→10:18)
[2018-01-01] MEDS ORDERED: *HR* Succinylcholine 200 MG/10 ML VIAL IVP ONE (10:37)
[2018-01-01] MEDS ORDERED: *HR* Labetalol 100 MG/20 ML MDV ONE (10:40)
[2018-01-01] MEDS ORDERED: Vancomycin 1,000 MG, Sodium Chloride IRRigation 1,000 ML IR ONE (11:50)
[2018-01-01] MEDS ORDERED: *HR* Labetalol 20 MG/4 ML SYRINGE IVP PRN ×2 (11:56→15:11)
[2018-01-01] MEDS ORDERED: *HR* Promethazine 25 MG/ML VIAL IVP PRN (11:56)
[2018-01-01] MEDS ORDERED: *HR* Meperidine 25 MG/ML SYRINGE IVP PRN (11:56)
[2018-01-01] MEDS ORDERED: *HR* Morphine 2 MG/ML SYRINGE IVP PRN (11:56)
--- NOTE | 2018-01-01 13:46 | Operative Note ---
Date of procedure: 01/01/18 Pre-op diagnosis: Peripheral vascular disease with rest pain Post-op diagnosis: same Procedure: 1. Right femoral to left femoral artery bypass graft therombectomy with revision of the proximal anastamosis. 2. Reoperative left femoral to below knee popliteal bypass with 6mm Distaflo minicuff graft. 3. Left tibial thrombectomy with 3 filipino erick embolectomy catheter. Complications: None Anesthesia: GETA Surgeon: Gabriel Healy Was there an ortho assistant present: No Estimated blood loss (cc): 200 Specimen: lower extremity thrombus and plaque Condition: stable Disposition: PACU Procedure in Detail: Indications: The patient is a 57 year old male with a long history of peripheral vascular disease with rest pain. He has previously undergone a right to left femoral to femoral artery bypass and a left femoral to above knee popliteal artery bypass. He has required graft thrombectomy previously. He presented to clinic with recurrent rest pain. He has been scheduled for revacularization to alleviate his symptoms and reduce his risk of limb loss. Procedure: The patient was identified in the preoperative area. The risks, benefits and alternatives were discussed and all questions were answered. The patient was taken to the operating room and placed in the supine position on the operating room table. After the induction of general endotracheal anesthesia, the patient was cleaned and draped in the normal sterile fashion. An oblique incision was made sharply through her previous right groin scar overlying the right femoral vessels. Hemostasis was obtained with electrocautery. Through a process of blunt, sharp and electrocautery dissection , the right distal external iliac, common, deep and superficial femoral arteries were dissected and surrounded with vessel loops. The proximal limb of the femoral to femoral artery bypass graft was dissected and surrounded with vesel loops. The patient received a 5000 unit bolus of heparin. After waiting adequate time or the heparin to circulate, the vessels and grafts were occluded with the vessel loops and atraumatic vascular clamps. A longitudinal arteriotomy was made through the graft anastamoses and extended proximally into the moapa artery. No flow was noted on release of the loops. A 4 filipino erick catheter was passed into the femoral to femoral artery bypass and inflated. It was withdrawn and some acute thrombus and chronic embolic material was retrieved. Minimal retrograde flow was noted at this time. A longitudinal incision was then made through the previous scar in the left medial thigh. The process of blunt, sharp and electrocautery dissection the left above-knee popliteal artery was dissected proximally and distally along with the distal anastomosis of the bypass graft. The Erick catheter was then passed through the right femoral incision down to the popliteal bypass graft distal anastomosis. Upon removal of the balloon no significant retrograde flow was noted and no pulse was noted. A longitudinal graftotomy was made in the popliteal distal anastomosis. A graftotomy was performed proximally. Distally the balloon would not pass to the popliteal artery. A longitudinal incision was made along the left medial calf sharply. Hemostasis was obtained with electrocautery. The processes of blunt, sharp and electrocautery dissection the below-knee popliteal artery and proximal tibial vessels were dissected circumferentially and surrounded with vessel loops. Additional heparin was given to maintain anticoagulation. Popliteal and tibial vessels were occluded with vessel loops. A longitudinal arteriotomy was made in the popliteal artery distally. Significant organized thrombus was encountered at this level. A 3-[place] Erick embolus to be catheter was passed distally into the tibial vessels. Significant thrombus was removed. Retrograde flow was noted through the tibial vessels. Heparinized saline was flushed into the tibial vessels and they were occluded. The 3 and 4-[place] Erick catheters would not pass proximally. A 6-[place] graft was then tunneled between the above-knee and below-knee popliteal incisions. The distal end of the graft was sutured with a running 6-0 Prolene to the below-knee popliteal artery. Proximally the graft was cut to fit the graft defect. After transecting the graft and oversewing the distal end of the above-knee segment with a 3-0 running Prolene stitch the new graft was sutured to the previous graft and the above-knee popliteal segment with a running 6-0 Prolene. The proximal bypass and was tied. Attention was returned to the right groin. A Hemashield patch was cut to fit the graft and arterial defect to revise the proximal anastomosis. The patch was sutured in place with a running 6-0 Prolene. Flow was then restored in the right femoral vessels and pulsatile flow was noted through the graft. The distal end of the graft was flushed with heparinized saline and the tibial vessels were then flushed. The anastomosis was completed and the below-knee popliteal segment. Flow was restored to the left lower extremity. Polyphasic signals were identified in the posterior tibial and dorsalis pedis arteries below the ankle. The wound was irrigated with antibiotic containing saline. Platelet rich and platelet poor plasma were reviewed were infused into the wounds. Hemostasis was obtained with electrocautery. The wounds were reapproximated with 2-0 and 3-0 vicryl. Skin was reapproximated with 3-0 Monocryl. Sterile dressings were applied. The patient was extubated and taken to the recovery room in stable condition.
[2018-01-01] MEDS ORDERED: *HR* HYDROmorphone (PF) 1 MG/ML SYRINGE IVP PRN (14:01)
[2018-01-01] MEDS ORDERED: *HR* HYDROmorphone 2 MG/ML SYRINGE ONE (14:04)
[2018-01-01] MEDS ORDERED: NiCARdipine 2.5 MG/10 ML Syringe IVPB ONE (14:22)
[2018-01-01] MEDS ORDERED: *HR* FentaNYL PATCH 25 MCG PATCH TD SCH (15:11)
[2018-01-01] MEDS ORDERED: Ondansetron 4 MG/2 ML VIAL IVP PRN (15:11)
[2018-01-01] MEDS ORDERED: *HR* OxyCODONE Immed Rel 5 MG TABLET PO PRN (15:11)
[2018-01-01] MEDS ORDERED: 0.9 % Sodium Chloride 1,000 ML IVC SCH (15:11)
[2018-01-01] MEDS ORDERED: Naloxone 0.4 MG/ML INJ IVP PRN (15:11)
[2018-01-01] MEDS ORDERED: OXYCODONE Oral CONC 10 MG/0.5 ML ORAL.SYG SL PRN ×2 (15:11)
[2018-01-01] MEDS: Gabapentin 300 MG CAPSULE PO SCH ×2 (15:48→21:28)
[2018-01-01] MEDS: ALPRAZolam 1 MG TABLET PO SCH ×2 (15:48→21:28)
[2018-01-01] MEDS: *HR* OxyCODONE Immed Rel 5 MG TABLET PO PRN ×2 (15:48→21:28)
[2018-01-01] MEDS ORDERED: 0.9 % Sodium Chloride 500 ML IV SCH (16:15)
[2018-01-01] MEDS ORDERED: *HR* Rivaroxaban 10 MG TABLET PO SCH (17:00)
[2018-01-01] MEDS: *HR* Metoprolol 5 MG/5 ML VIAL IVP SCH ×2 (17:23→23:56)
[2018-01-01] MEDS ORDERED: *HR* Heparin 5,000 UNIT/ML VIAL SQ SCH (18:00)
[2018-01-01] MEDS ORDERED: CeFAZolin Pre 2,000 MG/100 ML 2,000 MG/100 ML BAG IVPB SCH (19:00)
[2018-01-01] MEDS ORDERED: traZODone 50 MG TABLET PO SCH (21:00)
[2018-01-01] MEDS ORDERED: FLUoxetine HCl 10 MG CAPSULE PO SCH (21:00)
[2018-01-02] MEDS: *HR* OxyCODONE Immed Rel 5 MG TABLET PO PRN ×2 (03:59→08:03)
[2018-01-02 04:46] LABS: Basophils % 0.2 %; Eosinophils % 0.1 %; Hematocrit 37.6 % (37.5-50.1); Hemoglobin 12.2 g/dL (12.9-16.9); Immature Granulocytes % 0.4 % (0-4); Lymphocytes # 1.6 K/mcL (0.6-4.6); Lymphocytes % 16.7 %; Mean Corpuscular HGB Conc 32.4 g/dL (31.6-35.5); Mean Corpuscular Hemoglobin 31.1 pg (28.0-33.3); Mean Corpuscular Volume 95.9 fL (83.0-100.0); Mean Platelet Volume 10.5 fL (9.4-12.4); Monocytes % 6.8 %; Neutrophils # 7.2 K/mcL (1.6-8.9); Platelet Count 139 K/mcL (140-400); Red Blood Count 3.92 M/mcL (4.19-5.50); Red Cell Distribution Width 13.8 % (11.5-14.5); Segmented Neutrophils % 75.8 %
[2018-01-02 04:52] LABS: Monocytes # 0.7 K/mcL (0.0-1.3)
[2018-01-02 05:02] LABS: BUN/Creatinine Ratio 12 (6-26); Blood Urea Nitrogen 10 mg/dL (6-20); Calcium 8.3 mg/dL (8.6-10.3); Carbon Dioxide 28 mEq/L (23-29); Chloride 107 mEq/L (98-107); Glucose 139 mg/dL (70-105); Osmolality,Calculated 291 (280-300); Potassium 3.9 mEq/L (3.5-5.1); Sodium 140 mEq/L (136-145); eGFR For African Americans > 60 (> 60); eGFR For Non-African Americans > 60 (> 60)
[2018-01-02] MEDS: *HR* Metoprolol 5 MG/5 ML VIAL IVP SCH (06:24)
--- NOTE | 2018-01-02 07:02 | Discharge Summary ---
Orders not resulted at time of discharge: Pending orders 01/01/18 Red Blood Cells [BBK] Routine 01/01/18 13:36 Surgical Pathology [PTH] Routine Date of Encounter: 01/02/18 Time of Encounter: 07:40 - Discharge Diagnosis (1) Atherosclerosis of left lower extremity with rest pain Priority: Primary Status: Acute Comments: The patient is postopertive day #1. His foot was warm and he had polyphasic doppler signals. His incisions are healing well. He will be discharged. He will continue with Xarelto. Qualifiers: Peripheral atherosclerosis artery type: bypass graft, nonbiological Qualified Code(s): I70.622 - Atherosclerosis of nonbiological bypass graft(s) of the extremities with rest pain, left leg (2) Essential hypertension Priority: Secondary Status: Chronic (3) COPD (chronic obstructive pulmonary disease) Priority: Secondary Status: Chronic Qualifiers: COPD type: emphysema Emphysema type: panlobular Qualified Code(s): J43.1 - Panlobular emphysema (4) Hyperlipidemia Priority: Secondary Status: Chronic Qualifiers: Hyperlipidemia type: mixed hyperlipidemia Qualified Code(s): E78.2 - Mixed hyperlipidemia (5) Obesity (BMI 30.0-34.9) Priority: Secondary Status: Chronic (6) Acute blood loss anemia Priority: Secondary Status: Acute Comments: He has acute expected postoperative blood loss anemia. He remains hemodynamically stable without evidence of ongoing blood loss. - Hospital Course Hospital course: Mr. Rodriguez is a 57 year old male admitted on 01/01/18. 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 He was takent to the operating room where he underwent FEM FEM graft thrombectomy and a left femroal to below knee popliteal artery bypass. He tolerated the procedure well and was discharged to home in stable condition on postoperative day #1 without complications. He remains on Xarelto. - Time Spent with Patient Total time spent providing and/or coordinating discharge services: - Discharge Medications Home Medications: Alprazolam [Xanax] 2 mg PO QID 11/24/17 [History] DULoxetine [Cymbalta] 30 mg PO QPM 11/24/17 [History] DULoxetine [Cymbalta] 60 mg PO DAILY 11/24/17 [History] Docusate Sodium [Stool Softener] 100 mg PO DAILY 11/24/17 [History] Dronabinol [Marinol] 2.5 mg PO DAILY 11/24/17 [History] Enalapril Maleate [Vasotec] 10 mg PO DAILY 11/24/17 [History] Ergocalciferol (VITAMIN D2) [Vitamin D2] 50,000 unit PO TU 11/24/17 [History] FLUoxetine HCl [Prozac] 10 mg PO HS 11/24/17 [History] FentaNYL PATCH [Duragesic] 25 mcg TD Q72H 11/24/17 [History] Gabapentin [Neurontin] 600 mg PO TID 11/24/17 [History] Magnesium Oxide [Magnesium] 400 mg PO DAILY 11/24/17 [History] Mv,Ca,Min/Iron Fum/FA/Lyco/Lut [Sentry Multivit & Mineral Cplt] 1 each PO DAILY 11/24/17 [History] Omeprazole [PriLOSEC] 20 mg PO BID 11/24/17 [History] Oxycodone HCl [Oxycodone HCl ER] 30 mg PO Q4-6H PRN 11/24/17 [History] Pilocarpine HCl [Salagen] 5 mg PO TID 11/24/17 [History] Simvastatin [Zocor] 20 mg PO HS 11/24/17 [History] Trazodone HCl 150 mg PO HS 11/24/17 [History] OxyCODONE Immed Rel [Roxicodone 10 MG] 10 mg PO Q8H PRN 11/25/17 [History] Rivaroxaban [Xarelto] 20 mg PO 1700 #30 tablet 11/28/17 [Rx] Levothyroxine [Synthroid] 175 mcg PO 0630 01/01/18 [History] Allergies/Adverse Reactions: 3 Allergy/AdvReac Type Severity Reaction Status Date / Time No Known Allergies Allergy Verified 01/01/18 07:33 Date of admission: 01/01/18 15:30 Primary care physician: Julius Mcclelland MD Procedure(s) Performed: Right femoral to left femoral artery bypass graft thrombectomy, left femoral to below knee popliteal bypass and Left tibial thrombectomy. Discharging clinician: Gabriel Healy Anticipated date of discharge: 01/02/18 Exam Vital Signs, Last 4 Hours Temp Pulse Resp BP Pulse Ox 01/02/18 03:52 98.9 F 76 18 112/64 91 General: Present: Conversant Cardiac: Present: Reg Rate and Rhythm Lungs: Present: Normal Breath Sounds Neuro: Present: Alert and responsive, Motor nerves grossly intact, Sensory nerves grossly intact Abdomen: Present: Soft Vascular: Present: Normal capillary refill, Surgical incisions (no heamtoma, compartments soft), Other (Left pedal signals present by doppler). Absent: Cyanosis, Edema Skin: Present: No rashes noted on visualized skin - Patient Status Disposition: Home, Self-Care Condition: Good Functional capacity at discharge: uses cane/walker Overall status at discharge: patient is back to baseline - Discharge Instructions Instructions: Peripheral Vascular Disorders (DC) Follow Up With: Julius Mcclelland MD [Primary Care Provider] - 01/08/18 4:00 pm Gabriel Healy MD [Partnered Physician] - 02/10/18 2:30 pm Additional Instructions: May remove bandage and shower on 01/03/18. Wash wounds gently and pat to dry. Apply dry gauze to wounds daily for 7 days. No tub baths or swimming until 01/20/18. Call Dr. Healy at [phone] with questions or concerns. - Diet and Activity Activity: as per physical therapy Diet: low fat, low cholesterol - VTE Documentation of Mechanical Device: Intermittent pneumatic compression device
[2018-01-02 07:15] VITALS: BP 124/62
[2018-01-02] MEDS: ALPRAZolam 1 MG TABLET PO SCH (08:04)
[2018-01-02] MEDS: Gabapentin 300 MG CAPSULE PO SCH (08:04)
[2018-01-02] MEDS ORDERED: Magnesium Oxide 400 MG TABLET PO SCH (09:00)
[2018-01-02] MEDS ORDERED: Multivit/Ca/Min/Fe/FA 1 TAB TABLET PO SCH (09:00)
== END 2018-01-02 09:47 | disposition home or self-care (01) | DRG 253 ==
LOC: SAMDAY 06:25 → 2NNU 15:30
PROVIDERS: ADMIT Surgery; ATTEND Surgery
PROC: VASFFBG (ICD-10-PCS; 2018-01-01 08:15)

== ENCOUNTER 2020-01-10 06:21 | Inpatient (IN) ==
[~2020-01-10 06:21] MED LIST: Vancomycin 1,000 MG, Sodium Chloride IRRigation 1,000 ML IR ONE
[2020-01-10] MEDS ORDERED: CeFAZolin Syr 2,000MG/20 ML 2,000 MG/20 ML SYRINGE IVPB ONE (06:51)
[2020-01-10] MEDS ORDERED: *HR* FentaNYL (PF) 100 MCG/2 ML VIAL ONE (06:58)
[2020-01-10] MEDS ORDERED: *HR* Propofol 200 MG/20 ML VIAL IVP ONE (06:58)
[2020-01-10] MEDS ORDERED: Dexamethasone 4 MG/ML VIAL ONE (06:58)
[2020-01-10] MEDS ORDERED: *HR* Succinylcholine 200 MG/10 ML VIAL IVP ONE (06:58)
[2020-01-10] MEDS ORDERED: Lidocaine -MPF 4% 5 ML AMPUL ONE (06:58)
[2020-01-10] MEDS ORDERED: *HR* HYDROMORPHONE 2 MG/ML VIAL ONE (06:58)
[2020-01-10] MEDS ORDERED: Ondansetron 4 MG/2 ML VIAL ONE (06:58)
[2020-01-10] MEDS ORDERED: Lidocaine -MPF 2% 2 ML VIAL ONE (06:58)
[2020-01-10] MEDS ORDERED: Ringers Solution, Lactated 1,000 ML IVC SCH (07:00)
[2020-01-10] MEDS ORDERED: *HR* Midazolam HCl 2 MG/2 ML VIAL ONE (07:07)
[2020-01-10] MEDS ORDERED: Albumin Human 5% 0 GM/0 ML IV.SOLN ONE (07:13)
[2020-01-10] MEDS ORDERED: *HR* Vasopressin 20 UNIT/ML VIAL ONE (07:13)
[2020-01-10] MEDS ORDERED: Pregabalin 75 MG CAPSULE PO ONE (07:33)
[2020-01-10] MEDS ORDERED: Acetaminophen IV 1,000 MG/100 ML INFUS..BTL IVPB ONE (07:33)
[2020-01-10] MEDS ORDERED: *HR* OxyCODONE Immed Rel 5 MG TABLET PO PRN ×2 (07:33→11:37)
[2020-01-10] MEDS ORDERED: Famotidine 20 MG/2 ML VIAL IVP ONE (07:33)
[2020-01-10] MEDS ORDERED: *HR* Promethazine 25 MG/ML VIAL IVP PRN (07:33)
[2020-01-10] MEDS ORDERED: EPHEDrine 50 MG/ML VIAL ONE (08:39)
[2020-01-10] MEDS: *HR* HYDROmorphone PF 0.5 MG/0.5 ML SYRINGE IVP PRN ×4 (10:32→10:57)
[2020-01-10] MEDS: *HR* Labetalol 20 MG/4 ML SYRINGE IVP PRN ×6 (10:33→17:18)
[2020-01-10] MEDS ORDERED: Ondansetron 4 MG/2 ML VIAL IVP PRN (11:37)
[2020-01-10] MEDS ORDERED: 0.9 % Sodium Chloride 1,000 ML IVC SCH (11:37)
[2020-01-10] MEDS ORDERED: Acetaminophen 325 MG TABLET PO PRN ×2 (11:37)
[2020-01-10] MEDS ORDERED: Naloxone 0.4 MG/ML INJ IVP PRN (11:37)
[2020-01-10] MEDS ORDERED: *HR* HYDROcodone/Acet 5/325 mg TABLET PO PRN (11:37)
[2020-01-10] MEDS: Magnesium Oxide 400 MG TABLET PO SCH (12:43)
[2020-01-10] MEDS: lisinopriL 20 MG TABLET PO SCH (12:43)
[2020-01-10] MEDS: *HR* OxyCODONE Immed Rel 15 MG TABLET PO PRN (12:43)
[2020-01-10] MEDS: Multivit/Ca/Min/Fe/FA 1 TAB TABLET PO SCH (12:43)
[2020-01-10] MEDS: ALPRAZolam 1 MG TABLET PO SCH ×3 (12:44→21:00)
[2020-01-10] MEDS: *HR* Metoprolol 5 MG/5 ML VIAL IVP SCH ×2 (12:47→18:03)
[2020-01-10] MEDS ORDERED: Gabapentin 400 MG CAPSULE PO ONE (16:00)
[2020-01-10] MEDS: ceFAZolin 2,000 MG in 0.9 % Sodium Chloride 100 ML IVPB SCH (16:01)
[2020-01-10] MEDS: Gabapentin 400 MG CAPSULE PO SCH (21:00)
[2020-01-10] MEDS: *HR* HYDROcodone/Acet 5/325 mg TABLET PO PRN (21:00)
[2020-01-10] MEDS: traZODone 50 MG TABLET PO SCH (21:01)
[2020-01-11] MEDS: ceFAZolin 2,000 MG in 0.9 % Sodium Chloride 100 ML IVPB SCH (00:35)
[2020-01-11] MEDS: *HR* OxyCODONE Immed Rel 15 MG TABLET PO PRN (00:35)
[2020-01-11] MEDS: *HR* Metoprolol 5 MG/5 ML VIAL IVP SCH ×5 (00:35→23:17)
[2020-01-11] MEDS: ALPRAZolam 1 MG TABLET PO SCH ×4 (04:01→23:15)
[2020-01-11] MEDS: *HR* OxyCODONE Immed Rel 5 MG TABLET PO PRN ×2 (04:06→11:45)
[2020-01-11 04:49] LABS: Basophils % 0.1 %; Hematocrit 42.9 % (37.5-50.1); Hemoglobin 14.4 g/dL (12.9-16.9); Immature Granulocytes % 0.5 % (0-4); Lymphocytes # 1.6 K/mcL (0.6-4.6); Lymphocytes % 14.5 %; Mean Corpuscular HGB Conc 33.6 g/dL (31.6-35.5); Mean Corpuscular Hemoglobin 31.5 pg (28.0-33.3); Mean Corpuscular Volume 93.9 fL (83.0-100.0); Mean Platelet Volume 10.3 fL (9.4-12.4); Monocytes # 0.8 K/mcL (0.0-1.3); Monocytes % 7.4 %; Neutrophils # 8.5 K/mcL (1.6-8.9); Platelet Count 146 K/mcL (140-400); Red Blood Count 4.57 M/mcL (4.19-5.50); Red Cell Distribution Width 13.3 % (11.5-14.5); Segmented Neutrophils % 77.5 %
[2020-01-11 05:09] LABS: BUN/Creatinine Ratio 12 (6-26); Blood Urea Nitrogen 8 mg/dL (8-23); Calcium 8.9 mg/dL (8.6-10.3); Carbon Dioxide 28 mEq/L (23-29); Chloride 107 mEq/L (98-107); Glucose 124 mg/dL (70-105); Osmolality,Calculated 282 (280-300); Sodium 136 mEq/L (136-145); eGFR For African Americans > 60 (> 60); eGFR For Non-African Americans > 60 (> 60)
[2020-01-11] MEDS ORDERED: *HR* Heparin 5,000 UNIT/ML VIAL SQ SCH (06:00)
[2020-01-11] MEDS: *HR* Heparin 5,000 UNIT/ML VIAL SQ SCH ×2 (06:17→17:26)
[2020-01-11] MEDS: lisinopriL 20 MG TABLET PO SCH (07:42)
[2020-01-11] MEDS: *HR* HYDROcodone/Acet 5/325 mg TABLET PO PRN ×2 (07:42→15:28)
[2020-01-11] MEDS: Multivit/Ca/Min/Fe/FA 1 TAB TABLET PO SCH (07:42)
[2020-01-11] MEDS: Magnesium Oxide 400 MG TABLET PO SCH (07:43)
[2020-01-11] MEDS: Gabapentin 400 MG CAPSULE PO SCH ×3 (07:46→23:16)
[2020-01-11] MEDS: Ergocalciferol (VIT D2) 50,000 UNIT (1.25MG) CAP PO SCH ×2 (07:47→08:07)
[2020-01-11] MEDS: Ketorolac 15 MG/ML VIAL IVP SCH ×2 (17:27→23:17)
[2020-01-11] MEDS: traZODone 50 MG TABLET PO SCH (23:16)
[2020-01-12] MEDS: *HR* HYDROcodone/Acet 5/325 mg TABLET PO PRN (03:53)
[2020-01-12] MEDS: *HR* Heparin 5,000 UNIT/ML VIAL SQ SCH (05:36)
[2020-01-12] MEDS: Ketorolac 15 MG/ML VIAL IVP SCH ×2 (05:36→11:49)
[2020-01-12] MEDS: *HR* Metoprolol 5 MG/5 ML VIAL IVP SCH ×2 (05:36→11:49)
[2020-01-12] MEDS: *HR* OxyCODONE Immed Rel 5 MG TABLET PO PRN ×2 (05:55→13:52)
[2020-01-12 07:50] LABS: Basophils % 0.3 %; Eosinophils % 0.1 %; Hematocrit 45.9 % (37.5-50.1); Hemoglobin 15.2 g/dL (12.9-16.9); Immature Granulocytes % 0.3 % (0-4); Lymphocytes % 21.4 %; Mean Corpuscular HGB Conc 33.1 g/dL (31.6-35.5); Mean Corpuscular Volume 93.7 fL (83.0-100.0); Mean Platelet Volume 10.2 fL (9.4-12.4); Monocytes % 7.9 %; Platelet Count 161 K/mcL (140-400); Red Cell Distribution Width 13.6 % (11.5-14.5); White Blood Count 10.7 K/mcL (4.3-11.1)
[2020-01-12 07:51] LABS: Lymphocytes # 2.3 K/mcL (0.6-4.6); Monocytes # 0.8 K/mcL (0.0-1.3); Neutrophils # 7.5 K/mcL (1.6-8.9)
[2020-01-12 08:17] LABS: BUN/Creatinine Ratio 19 (6-26); Blood Urea Nitrogen 15 mg/dL (8-23); Calcium 9.4 mg/dL (8.6-10.3); Carbon Dioxide 30 mEq/L (23-29); Chloride 104 mEq/L (98-107); Glucose 104 mg/dL (70-105); Osmolality,Calculated 295 (280-300); Potassium 3.6 mEq/L (3.5-5.1); Sodium 142 mEq/L (136-145); eGFR For African Americans > 60 (> 60); eGFR For Non-African Americans > 60 (> 60)
[2020-01-12] MEDS: Magnesium Oxide 400 MG TABLET PO SCH (08:29)
[2020-01-12] MEDS: Multivit/Ca/Min/Fe/FA 1 TAB TABLET PO SCH (08:29)
[2020-01-12] MEDS: lisinopriL 20 MG TABLET PO SCH (08:29)
[2020-01-12] MEDS: ALPRAZolam 1 MG TABLET PO SCH ×2 (08:31→13:49)
[2020-01-12] MEDS: Gabapentin 400 MG CAPSULE PO SCH ×2 (08:34→11:49)
[2020-01-12 11:07] VITALS: BP 124/81
== END 2020-01-12 17:03 | DRG 241 ==
LOC: SAMDAY 06:21 → 3NENU 11:29
PROVIDERS: ADMIT Surgery; ATTEND Surgery

== ENCOUNTER 2020-03-31 11:40 | Inpatient (IN) ==
[2020-03-31 13:19] LABS: Basophils % 0.6 %; Eosinophils # 0.1 K/mcL (0.0-0.6); Eosinophils % 2.4 %; Hematocrit 38.8 % (37.5-50.1); Hemoglobin 12.1 g/dL (12.9-16.9); Immature Granulocytes % 0.4 % (0-4); Lymphocytes # 1.5 K/mcL (0.6-4.6); Lymphocytes % 28.8 %; Mean Corpuscular HGB Conc 31.2 g/dL (31.6-35.5); Mean Corpuscular Hemoglobin 29.3 pg (28.0-33.3); Mean Corpuscular Volume 93.9 fL (83.0-100.0); Mean Platelet Volume 9.9 fL (9.4-12.4); Monocytes # 0.4 K/mcL (0.0-1.3); Monocytes % 7.8 %; Platelet Count 229 K/mcL (140-400); Red Blood Count 4.13 M/mcL (4.19-5.50)
[2020-03-31] MEDS ORDERED: Vancomycin 0 MG in 0.9 % Sodium Chloride 250 ML IVPB STA (13:19)
[2020-03-31] MEDS ORDERED: Piperacillin/Tazobactam 3.375 GM in Water for inj. (sterile) 20 ML IVP ONE (13:19)
[2020-03-31 13:32] LABS: INR 1.5; Prothrombin Time 17.4 Seconds (9.4-12.1)
[2020-03-31 13:35] LABS: Activated Partial Thrombo Time 37.5 Seconds (26.0-36.0)
[2020-03-31 13:40] LABS: BUN/Creatinine Ratio 15 (6-26); Blood Urea Nitrogen 10 mg/dL (8-23); C-Reactive Protein 102 mg/L (Less than 10); Carbon Dioxide 31 mEq/L (23-29); Chloride 100 mEq/L (98-107); Glucose 77 mg/dL (70-105); Osmolality,Calculated 284 (280-300); Potassium 4.3 mEq/L (3.5-5.1); Sodium 138 mEq/L (136-145); eGFR For African Americans > 60 (> 60); eGFR For Non-African Americans > 60 (> 60)
[2020-03-31] MEDS ORDERED: methylPREDNISolone 125 MG/2 ML VIAL IVP ONE (13:56)
[2020-03-31] MEDS ORDERED: Famotidine 20 MG/2 ML VIAL IVP ONE (13:56)
[2020-03-31] MEDS ORDERED: EPINEPHrine 1 MG/ML VIAL ONE (14:00)
[2020-03-31] MEDS ORDERED: 0.9 % Sodium Chloride 1,000 ML ONE (14:04)
[2020-03-31] MEDS ORDERED: 0.9 % Sodium Chloride 1,000 ML IVC ONE (14:09)
[2020-03-31] MEDS ORDERED: EPINEPHrine 1 MG/ML VIAL IM ONE (14:10)
[2020-03-31] MEDS ORDERED: Ipratropium/Albuterol Neb 3 ML IH ONE (14:12)
[2020-03-31] MEDS ORDERED: Ondansetron 4 MG/2 ML VIAL IVP PRN (15:30)
[2020-03-31] MEDS ORDERED: Acetaminophen 325 MG TABLET PO PRN (15:30)
[2020-03-31] MEDS ORDERED: *HR* HYDROcodone/Acet 5/325 mg TABLET PO PRN (15:30)
[2020-03-31] MEDS ORDERED: Naloxone 0.4 MG/ML INJ IVP PRN (15:30)
[2020-03-31] MEDS ORDERED: *HR* OxyCODONE/APAP 10/325 TABLET PO PRN (15:35)
[2020-03-31] MEDS: *HR* FentaNYL (PF) 100 MCG/2 ML VIAL IVP STA (15:37)
[2020-03-31] MEDS ORDERED: EPINEPHrine 1 MG/ML VIAL IM PRN (17:18)
[2020-03-31] MEDS: traZODone 50 MG TABLET PO SCH (20:54)
[2020-03-31] MEDS: *HR* Heparin 5,000 UNIT/ML VIAL SQ SCH (23:04)
[2020-04-01] MEDS ORDERED: Albuterol 2.5 MG/3 ML NEBULIZER IH PRN (00:42)
[2020-04-01] MEDS ORDERED: Ipratropium/Albuterol Neb 3 ML ONE (00:52)
[2020-04-01] MEDS: Ipratropium/Albuterol Neb 3 ML IH SCH ×5 (00:56→21:38)
[2020-04-01] MEDS: MethylPREDNISolone 40 MG/ML VIAL IVP SCH ×5 (01:07→23:40)
[2020-04-01 02:19] LABS: Hematocrit 37.1 % (37.5-50.1); Mean Corpuscular HGB Conc 32.3 g/dL (31.6-35.5); Mean Corpuscular Hemoglobin 29.6 pg (28.0-33.3); Mean Corpuscular Volume 91.6 fL (83.0-100.0); Platelet Count 213 K/mcL (140-400); Red Blood Count 4.05 M/mcL (4.19-5.50); Red Cell Distribution Width 13.1 % (11.5-14.5); White Blood Count 4.8 K/mcL (4.3-11.1)
[2020-04-01 02:41] LABS: BUN/Creatinine Ratio 22 (6-26); Blood Urea Nitrogen 13 mg/dL (8-23); Calcium 8.7 mg/dL (8.6-10.3); Carbon Dioxide 26 mEq/L (23-29); Chloride 103 mEq/L (98-107); Glucose 205 mg/dL (70-105); Magnesium 2.1 mg/dL (1.6-2.6); Osmolality,Calculated 290 (280-300); Potassium 4.4 mEq/L (3.5-5.1); Sodium 137 mEq/L (136-145); eGFR For African Americans > 60 (> 60); eGFR For Non-African Americans > 60 (> 60)
[2020-04-01] MEDS: *HR* Heparin 5,000 UNIT/ML VIAL SQ SCH ×3 (05:38→20:24)
[2020-04-01] MEDS: Gabapentin 400 MG CAPSULE PO SCH ×3 (11:44→20:39)
[2020-04-01] MEDS: *HR* OxyCODONE Immed Rel 15 MG TABLET PO PRN ×2 (11:45→20:39)
[2020-04-01] MEDS: ALPRAZolam 1 MG TABLET PO PRN ×2 (11:45→22:08)
[2020-04-01] MEDS ORDERED: *HR* Midazolam HCl 2 MG/2 ML VIAL ONE (15:56)
[2020-04-01] MEDS ORDERED: Dexamethasone 4 MG/ML VIAL ONE (15:56)
[2020-04-01] MEDS ORDERED: *HR* FentaNYL (PF) 100 MCG/2 ML VIAL ONE (15:56)
[2020-04-01] MEDS ORDERED: Lidocaine -MPF 2% 2 ML VIAL ONE (15:56)
[2020-04-01] MEDS ORDERED: Ondansetron 4 MG/2 ML VIAL ONE (15:56)
[2020-04-01] MEDS ORDERED: *HR* Propofol 200 MG/20 ML VIAL IVP ONE (15:57)
[2020-04-01] MEDS ORDERED: Ondansetron 4 MG/2 ML VIAL IVP ONE (17:09)
[2020-04-01] MEDS ORDERED: Dexamethasone 4 MG/ML VIAL IVP ONE (17:09)
[2020-04-01] MEDS ORDERED: Vancomycin 1,000 MG VIAL ONE (17:37)
[2020-04-01] MEDS ORDERED: *HR* HYDROMORPHONE 2 MG/ML VIAL ONE (17:46)
[2020-04-01] MEDS ORDERED: *HR* Labetalol 20 MG/4 ML SYRINGE IVP ONE (18:12)
[2020-04-01] MEDS ORDERED: Naloxone 0.4 MG/ML INJ IVP PRN (18:51)
[2020-04-01] MEDS: *HR* FentaNYL (PF) 100 MCG/2 ML VIAL IVP STA (19:04)
[2020-04-01] MEDS: *HR* HYDROmorphone PF 0.5 MG/0.5 ML SYRINGE IVP PRN ×4 (19:08→19:47)
[2020-04-01] MEDS: *HR* FentaNYL (PF) 100 MCG/2 ML VIAL IVP PRN ×2 (19:11→19:16)
[2020-04-01] MEDS: Ringers Solution, Lactated 1,000 ML IVC SCH (20:38)
[2020-04-01] MEDS: traZODone 50 MG TABLET PO SCH (20:39)
[2020-04-02] MEDS: *HR* OxyCODONE Immed Rel 15 MG TABLET PO PRN ×5 (00:35→21:03)
[2020-04-02 01:46] LABS: Basophils % 0.1 %; Hematocrit 33.9 % (37.5-50.1); Hemoglobin 10.6 g/dL (12.9-16.9); Immature Granulocytes % 0.5 % (0-4); Lymphocytes # 0.5 K/mcL (0.6-4.6); Lymphocytes % 3.5 %; Mean Corpuscular HGB Conc 31.3 g/dL (31.6-35.5); Mean Corpuscular Volume 92.6 fL (83.0-100.0); Mean Platelet Volume 9.7 fL (9.4-12.4); Monocytes # 0.4 K/mcL (0.0-1.3); Monocytes % 3.2 %; Neutrophils # 12.5 K/mcL (1.6-8.9); Platelet Count 242 K/mcL (140-400); Red Blood Count 3.66 M/mcL (4.19-5.50); Red Cell Distribution Width 13.2 % (11.5-14.5); Segmented Neutrophils % 92.7 %
[2020-04-02 01:48] LABS: White Blood Count 13.5 K/mcL (4.3-11.1)
[2020-04-02 02:02] LABS: BUN/Creatinine Ratio 28 (6-26); Blood Urea Nitrogen 16 mg/dL (8-23); Calcium 8.8 mg/dL (8.6-10.3); Carbon Dioxide 24 mEq/L (23-29); Chloride 104 mEq/L (98-107); Glucose 127 mg/dL (70-105); Osmolality,Calculated 291 (280-300); Potassium 3.9 mEq/L (3.5-5.1); Sodium 139 mEq/L (136-145); eGFR For African Americans > 60 (> 60); eGFR For Non-African Americans > 60 (> 60)
[2020-04-02] MEDS: Ipratropium/Albuterol Neb 3 ML IH SCH ×4 (03:58→23:11)
[2020-04-02] MEDS: ALPRAZolam 1 MG TABLET PO PRN ×4 (05:04→21:04)
[2020-04-02] MEDS: MethylPREDNISolone 40 MG/ML VIAL IVP SCH ×4 (05:27→23:42)
[2020-04-02] MEDS: *HR* Heparin 5,000 UNIT/ML VIAL SQ SCH ×4 (05:27→21:16)
[2020-04-02] MEDS: Gabapentin 400 MG CAPSULE PO SCH ×3 (08:06→21:03)
[2020-04-02] MEDS ORDERED: Vancomycin 1,250 MG/262.5 ML IV.SOLN IVPB SCH (13:00)
[2020-04-02] MEDS: MetroNIDAZOLE 500 MG/100 ML 500 MG/100 ML BAG IVPB SCH ×3 (16:34→23:42)
[2020-04-02] MEDS: levoFLOXacin 750 MG/150 ML 750 MG/150 ML BAG IVPB SCH (16:35)
[2020-04-02] MEDS: traZODone 50 MG TABLET PO SCH (21:03)
[2020-04-02] MEDS: Ringers Solution, Lactated 1,000 ML IVC SCH (23:36)
[2020-04-03 01:00] LABS: Hemoglobin 9.3 g/dL (12.9-16.9); Mean Corpuscular Hemoglobin 29.6 pg (28.0-33.3); Mean Corpuscular Volume 95.5 fL (83.0-100.0); Mean Platelet Volume 9.7 fL (9.4-12.4); Platelet Count 218 K/mcL (140-400); Red Blood Count 3.14 M/mcL (4.19-5.50); Red Cell Distribution Width 13.3 % (11.5-14.5); White Blood Count 9.8 K/mcL (4.3-11.1)
[2020-04-03 01:13] LABS: BUN/Creatinine Ratio 21 (6-26); Blood Urea Nitrogen 11 mg/dL (8-23); Calcium 8.1 mg/dL (8.6-10.3); Carbon Dioxide 31 mEq/L (23-29); Chloride 103 mEq/L (98-107); Glucose 117 mg/dL (70-105); Osmolality,Calculated 288 (280-300); Potassium 4.1 mEq/L (3.5-5.1); Sodium 139 mEq/L (136-145); eGFR For African Americans > 60 (> 60); eGFR For Non-African Americans > 60 (> 60)
[2020-04-03] MEDS: Ipratropium/Albuterol Neb 3 ML IH SCH ×4 (03:52→22:39)
[2020-04-03] MEDS: *HR* OxyCODONE Immed Rel 15 MG TABLET PO PRN ×4 (05:39→21:51)
[2020-04-03] MEDS: MethylPREDNISolone 40 MG/ML VIAL IVP SCH ×2 (05:39→12:25)
[2020-04-03] MEDS: *HR* Heparin 5,000 UNIT/ML VIAL SQ SCH ×3 (05:40→21:39)
[2020-04-03] MEDS: levoFLOXacin 750 MG/150 ML 750 MG/150 ML BAG IVPB SCH (07:47)
[2020-04-03] MEDS: Gabapentin 400 MG CAPSULE PO SCH ×4 (07:47→21:39)
[2020-04-03] MEDS: MetroNIDAZOLE 500 MG/100 ML 500 MG/100 ML BAG IVPB SCH ×3 (07:48→23:31)
[2020-04-03] MEDS: ALPRAZolam 1 MG TABLET PO PRN ×2 (12:26→21:51)
[2020-04-03] MEDS: traZODone 50 MG TABLET PO SCH (21:40)
[2020-04-04 01:13] LABS: Hematocrit 28.4 % (37.5-50.1); Hemoglobin 8.8 g/dL (12.9-16.9); Immature Granulocytes % 0.5 % (0-4); Lymphocytes # 0.9 K/mcL (0.6-4.6); Lymphocytes % 11.5 %; Mean Corpuscular Hemoglobin 29.6 pg (28.0-33.3); Mean Corpuscular Volume 95.6 fL (83.0-100.0); Mean Platelet Volume 9.7 fL (9.4-12.4); Monocytes # 0.4 K/mcL (0.0-1.3); Monocytes % 4.5 %; Neutrophils # 6.8 K/mcL (1.6-8.9); Platelet Count 195 K/mcL (140-400); Red Blood Count 2.97 M/mcL (4.19-5.50); Red Cell Distribution Width 13.3 % (11.5-14.5); Segmented Neutrophils % 83.5 %; White Blood Count 8.2 K/mcL (4.3-11.1)
[2020-04-04 01:28] LABS: BUN/Creatinine Ratio 26 (6-26); Blood Urea Nitrogen 15 mg/dL (8-23); Carbon Dioxide 31 mEq/L (23-29); Chloride 103 mEq/L (98-107); Glucose 124 mg/dL (70-105); Osmolality,Calculated 290 (280-300); Potassium 3.5 mEq/L (3.5-5.1); Sodium 139 mEq/L (136-145); eGFR For African Americans > 60 (> 60); eGFR For Non-African Americans > 60 (> 60)
[2020-04-04] MEDS: Vancomycin 1,250 MG/262.5 ML IV.SOLN IVPB SCH ×2 (02:00→14:20)
[2020-04-04] MEDS: Ipratropium/Albuterol Neb 3 ML IH SCH ×4 (04:23→21:53)
[2020-04-04] MEDS: *HR* Heparin 5,000 UNIT/ML VIAL SQ SCH ×3 (06:09→19:57)
[2020-04-04] MEDS: Gabapentin 400 MG CAPSULE PO SCH ×4 (07:24→19:56)
[2020-04-04] MEDS: levoFLOXacin 750 MG/150 ML 750 MG/150 ML BAG IVPB SCH (07:25)
[2020-04-04] MEDS: MetroNIDAZOLE 500 MG/100 ML 500 MG/100 ML BAG IVPB SCH ×3 (07:25→23:11)
[2020-04-04] MEDS: *HR* OxyCODONE Immed Rel 15 MG TABLET PO PRN ×2 (14:15→19:56)
[2020-04-04] MEDS: ALPRAZolam 1 MG TABLET PO PRN ×2 (14:18→19:55)
[2020-04-04] MEDS: traZODone 50 MG TABLET PO SCH (23:11)
[2020-04-05] MEDS: *HR* OxyCODONE Immed Rel 15 MG TABLET PO PRN ×3 (00:23→09:26)
[2020-04-05] MEDS: Vancomycin 1,250 MG/262.5 ML IV.SOLN IVPB SCH ×2 (01:01→14:36)
[2020-04-05] MEDS: Ipratropium/Albuterol Neb 3 ML IH SCH ×3 (03:23→15:44)
[2020-04-05] MEDS: *HR* Heparin 5,000 UNIT/ML VIAL SQ SCH ×2 (04:45→14:39)
[2020-04-05] MEDS: Gabapentin 400 MG CAPSULE PO SCH ×3 (07:28→15:15)
[2020-04-05] MEDS: MetroNIDAZOLE 500 MG/100 ML 500 MG/100 ML BAG IVPB SCH ×2 (07:28→15:16)
[2020-04-05] MEDS: ALPRAZolam 1 MG TABLET PO PRN (07:35)
[2020-04-05] MEDS: levoFLOXacin 750 MG/150 ML 750 MG/150 ML BAG IVPB SCH (08:46)
[2020-04-05 11:59] VITALS: BP 141/83
[2020-04-05] MEDS ORDERED: Lidocaine -MPF 1% 5 ML AMPUL INFILT ONE (14:27)
[2020-04-05] MEDS ORDERED: Aminoglycoside Consult 1 EACH MC ONE (16:35)
== END 2020-04-05 16:36 | disposition home health service (06) ==
LOC: EMEROOARM 11:40 → 2NNU 11:40 → SUATTDRO 16:05 → 2NNU 16:54 → SUATTDRO 04-01 14:51
PROVIDERS: ADMIT Internal Medicine; ATTEND Internal Medicine

== ENCOUNTER 2020-05-04 06:27 | Inpatient (IN) ==
[2020-05-04] MEDS ORDERED: Lidocaine -MPF 2% 2 ML VIAL ONE (06:49)
[2020-05-04] MEDS ORDERED: Dexamethasone 4 MG/ML VIAL ONE (06:49)
[2020-05-04] MEDS ORDERED: Ondansetron 4 MG/2 ML VIAL ONE (06:49)
[2020-05-04] MEDS ORDERED: *HR* Propofol 200 MG/20 ML VIAL IVP ONE (06:50)
[2020-05-04] MEDS ORDERED: Vancomycin 1,250 MG/262.5 ML IV.SOLN IVPB ONE ×2 (06:51→19:30)
[2020-05-04] MEDS ORDERED: CeFAZolin Syr 2,000MG/20 ML 2,000 MG/20 ML SYRINGE IVPB ONE (06:51)
[2020-05-04] MEDS ORDERED: Ringers Solution, Lactated 1,000 ML IVC SCH (07:00)
[2020-05-04] MEDS ORDERED: Ketorolac 15 MG/ML VIAL IVP ONE (07:16)
[2020-05-04] MEDS ORDERED: *HR* Promethazine 25 MG/ML VIAL IVP PRN (07:16)
[2020-05-04] MEDS ORDERED: Ondansetron 4 MG/2 ML VIAL IVP ONE (07:16)
[2020-05-04] MEDS ORDERED: *HR* FentaNYL (PF) 100 MCG/2 ML VIAL IVP PRN (07:16)
[2020-05-04] MEDS ORDERED: Albuterol 2.5 MG/3 ML NEBULIZER IH PRN (07:16)
[2020-05-04] MEDS ORDERED: *HR* OxyCODONE Immed Rel 5 MG TABLET PO PRN ×3 (07:16→10:08)
[2020-05-04] MEDS ORDERED: Acetaminophen IV 1,000 MG/100 ML INFUS..BTL IVPB ONE (07:16)
[2020-05-04] MEDS ORDERED: *HR* Midazolam HCl 2 MG/2 ML VIAL ONE (07:23)
[2020-05-04] MEDS ORDERED: Ropivacaine/PF 0.5% 30 ML VIAL ONE (07:23)
[2020-05-04] MEDS ORDERED: ROPIVACAINE/PF/NS 0.25% 1 EACH SYRINGE INTRAART ONE (07:23)
[2020-05-04] MEDS ORDERED: Vancomycin 1,000 MG, Sodium Chloride IRRigation 1,000 ML IR ONE (07:45)
[2020-05-04] MEDS ORDERED: *HR* HYDROcodone/Acet 5/325 mg TABLET PO PRN ×2 (10:08)
[2020-05-04] MEDS ORDERED: Ondansetron 4 MG/2 ML VIAL IVP PRN (10:08)
[2020-05-04] MEDS ORDERED: Acetaminophen 325 MG TABLET PO PRN ×2 (10:08)
[2020-05-04] MEDS ORDERED: 0.9 % Sodium Chloride 1,000 ML IVC SCH (10:08)
[2020-05-04] MEDS ORDERED: ALPRAZolam 1 MG TABLET PO PRN (10:08)
[2020-05-04] MEDS ORDERED: *HR* Labetalol 20 MG/4 ML SYRINGE IVP PRN (10:08)
[2020-05-04] MEDS ORDERED: Naloxone 0.4 MG/ML INJ IVP PRN (10:08)
[2020-05-04] MEDS: Magnesium Oxide 400 MG TABLET PO SCH (11:41)
[2020-05-04] MEDS: Gabapentin 400 MG CAPSULE PO SCH ×2 (11:43→22:26)
[2020-05-04] MEDS: *HR* Metoprolol 5 MG/5 ML VIAL IVP SCH ×3 (11:46→23:37)
[2020-05-04] MEDS: lisinopriL 20 MG TABLET PO SCH (11:46)
[2020-05-04] MEDS: CeFAZolin 2 GM/120 ML BAG IVPB SCH ×2 (15:51→23:46)
[2020-05-04] MEDS ORDERED: Gabapentin 400 MG CAPSULE PO SCH (16:00)
[2020-05-04] MEDS: *HR* OxyCODONE/APAP 7.5/325 TABLET PO PRN (17:23)
[2020-05-04] MEDS ORDERED: traZODone 50 MG TABLET PO SCH (21:00)
[2020-05-04] MEDS: *HR* OxyCODONE Immed Rel 5 MG TABLET PO PRN (22:32)
[2020-05-05] MEDS: *HR* OxyCODONE Immed Rel 5 MG TABLET PO PRN (02:54)
[2020-05-05] MEDS: *HR* Metoprolol 5 MG/5 ML VIAL IVP SCH ×2 (05:25→12:31)
[2020-05-05 05:59] LABS: Hematocrit 24.7 % (37.5-50.1); Immature Granulocytes % 0.4 % (0-4); Lymphocytes # 0.9 K/mcL (0.6-4.6); Lymphocytes % 13.2 %; Mean Corpuscular HGB Conc 30.4 g/dL (31.6-35.5); Mean Corpuscular Volume 92.2 fL (83.0-100.0); Mean Platelet Volume 10.6 fL (9.4-12.4); Monocytes # 0.6 K/mcL (0.0-1.3); Monocytes % 8.5 %; Neutrophils # 5.5 K/mcL (1.6-8.9); Platelet Count 158 K/mcL (140-400); Red Blood Count 2.68 M/mcL (4.19-5.50); Red Cell Distribution Width 14.5 % (11.5-14.5); Segmented Neutrophils % 77.9 %
[2020-05-05] MEDS ORDERED: *HR* Heparin 5,000 UNIT/ML VIAL SQ SCH ×2 (06:00)
[2020-05-05 06:02] LABS: Hemoglobin 7.5 g/dL (12.9-16.9)
[2020-05-05 06:15] LABS: BUN/Creatinine Ratio 19 (6-26); Blood Urea Nitrogen 14 mg/dL (8-23); Calcium 7.9 mg/dL (8.6-10.3); Carbon Dioxide 29 mEq/L (23-29); Chloride 108 mEq/L (98-107); Glucose 152 mg/dL (70-105); Osmolality,Calculated 293 (280-300); Sodium 140 mEq/L (136-145); eGFR For African Americans > 60 (> 60); eGFR For Non-African Americans > 60 (> 60)
[2020-05-05] MEDS: Gabapentin 400 MG CAPSULE PO SCH (08:21)
[2020-05-05] MEDS: Magnesium Oxide 400 MG TABLET PO SCH (08:22)
[2020-05-05] MEDS: lisinopriL 20 MG TABLET PO SCH (08:22)
[2020-05-05] MEDS: *HR* OxyCODONE/APAP 7.5/325 TABLET PO PRN (08:31)
[2020-05-05] MEDS ORDERED: Ergocalciferol (VIT D2) 50,000 UNIT (1.25MG) CAP PO SCH (09:00)
[2020-05-05 10:55] VITALS: BP 158/72
== END 2020-05-05 14:18 | disposition home health service (06) | DRG 475 ==
LOC: SAMDAY 06:27 → 3ANU 10:07
PROVIDERS: ADMIT Surgery; ATTEND Surgery